=== PATIENT | female | born 1965 | race Two or more races ===

== ENCOUNTER 2018-01-13 00:21 | Inpatient (IN) | payer MEDICAID ==
[~2018-01-13] VITALS: Ht 167.6 cm; Wt 78.0 kg
[~2018-01-13 00:21] MED LIST: ACETAMINOPHEN-COD; ATO40T; ENAL20TA70; FENO160T8 PO; GLYB2.5T71; HYDR25TA4; NIAC500T58
[2018-01-13] MEDS ORDERED: cloNIDine HCL 0.1 MG TAB ONE (00:33)
[2018-01-13 01:35] LABS: Basophils # (auto) 0.1 uL; Basophils % (auto) 1.4 % (0.0-2.0); Eosinophils # (auto) 0 uL; Eosinophils % (auto) 0.6 % (0.0-7.0); Hematocrit 36.7 % (36.0-46.0); Hemoglobin 12.5 g/dL (12.2-16.2); Lymphocytes # (auto) 1.3 uL; Lymphocytes % (auto) 21.9 % (10.0-50.0); Mean Corpuscular Hemoglobin 30.3 pg (28.0-32.0); Mean Corpuscular Hgb Conc. 34.1 g/dL (32.0-36.0); Mean Corpuscular Volume 88.9 fL (80.0-100.0); Monocytes # (auto) 0.2 uL; Monocytes % (auto) 3.1 % (0.0-12.0); Neutrophils # (auto) 4.4 uL; Platelet Count (auto) 436 10^3/uL (140-450); Red Blood Cells 4.13 10^6/uL (4.0-5.20); Red Cell Distribution Width 13.5 % (11.8-14.3)
[2018-01-13 01:52] LABS: Albumin 2.3 g/dL (3.4-5.0); Magnesium 2.1 mg/dL (1.6-2.6); Potassium 4.6 mmol/L (3.5-5.1)
[2018-01-13 01:54] LABS: Total Protein 6.4 g/dL (6.4-8.2)
[2018-01-13 02:01] LABS: Bilirubin, Total 0.2 mg/dL (0.2-1.0)
[2018-01-13] MEDS ORDERED: InsuLIN REG 1unit/0.01ml Soln (100units/ml) IV ONE (04:15)
[2018-01-13] MEDS ORDERED: SODIUM POLYSTYRENE SULF 15GM/60ML SUSP PO ONE (04:15)
[2018-01-13] MEDS ORDERED: SODIUM CHLORIDE 0.9% 1,000 ML IV ONE ×2 (04:15→14:45)
[2018-01-13] MEDS ORDERED: ASPirin 81 mg TAB PO ONE (06:00)
[2018-01-13] MEDS ORDERED: ENOXAPARIN SOD 80 MG/0.8ML SYRINGE SC ONE (06:00)
[2018-01-13 06:05] LABS: Urine Bacteria FEW /hpf (None Seen); Urine Blood TRACE /uL (Negative); Urine Mucus FEW (None Seen); Urine Specific Gravity 1.016 (1.001-1.035); Urine WBC 2 /hpf (0 - 5)
[2018-01-13] MEDS ORDERED: SODIUM CHLORIDE 0.9% 1,000 ML IV SCH (06:48)
[2018-01-13] MEDS ORDERED: DEXTROSE (50%) 50ML SYRG IV PRN (07:00)
[2018-01-13] MEDS ORDERED: ONDANSETRON HCL 4 MG/2 ML VIAL IV PRN (07:00)
[2018-01-13] MEDS ORDERED: TEMAZEPAM 15 MG CAP PO PRN (07:00)
[2018-01-13] MEDS ORDERED: METOPROLOL TARTRATE 25 MG TAB PO ONE (07:30)
[2018-01-13] MEDS: NITROGLYCERIN 0.4 MG SL TAB SL PRN ×2 (09:48→17:12)
[2018-01-13] MEDS ORDERED: HCTZ 25 MG TAB PO SCH (10:00)
[2018-01-13] MEDS ORDERED: ENALAPRIL MALEATE 10 MG TAB PO SCH (10:00)
[2018-01-13] MEDS: PANTOPRAZOLE 40 MG TAB PO SCH (10:29)
[2018-01-13 12:00] VITALS: BP 159/104
[2018-01-13] MEDS: ACCU-CHEK COMFORT CURVE STRIP VI SCH ×3 (12:20→23:51)
[2018-01-13] MEDS: InsuLIN REG 1unit/0.01ml Soln (100units/ml) SC SCH ×3 (13:45→23:52)
[2018-01-13 17:19] VITALS: BP 152/96
[2018-01-13] MEDS: SODIUM CHLORIDE 0.9% 1,000 ML IV SCH (17:47)
[2018-01-13] MEDS: ISOSORBIDE DINITRATE 10 MG TAB PO SCH (18:00)
[2018-01-13] MEDS: CARVEDILOL 3.125 MG TAB PO SCH (21:44)
[2018-01-13] MEDS: ATORVASTATIN 20 MG TAB PO SCH (21:44)
[2018-01-13 22:00] VITALS: BP 155/94
[2018-01-13] MEDS ORDERED: ENOXAPARIN SOD 80 MG/0.8ML SYRINGE SC SCH ×2 (22:00)
[2018-01-14 00:30] LABS: Urine Blood Negative /uL (Negative); Urine Specific Gravity 1.011 (1.001-1.035)
[2018-01-14 00:31] LABS: Urine Bacteria FEW /hpf (None Seen); Urine Mucus FEW (None Seen); Urine WBC 3 /hpf (0 - 5)
[2018-01-14 00:59] LABS: Protein, Urine 388.1 mg/dL (0.0-11.9)
[2018-01-14] MEDS: SODIUM CHLORIDE 0.9% 1,000 ML IV SCH ×2 (01:30→13:33)
[2018-01-14 05:00] VITALS: BP 158/103
[2018-01-14] MEDS: ISOSORBIDE DINITRATE 10 MG TAB PO SCH ×3 (05:41→18:00)
[2018-01-14] MEDS: ACCU-CHEK COMFORT CURVE STRIP VI SCH ×4 (05:54→23:56)
[2018-01-14] MEDS: InsuLIN REG 1unit/0.01ml Soln (100units/ml) SC SCH ×4 (05:55→23:57)
[2018-01-14 08:05] LABS: Albumin 2.2 g/dL (3.4-5.0); BUN/Creatinine Ratio 12.7; Bilirubin, Total 0.2 mg/dL (0.2-1.0); Calcium 8.3 mg/dL (8.5-10.1); Phosphorus 3.3 mg/dL (2.5-4.90); Potassium 3.4 mmol/L (3.5-5.1); Total Protein 6.2 g/dL (6.4-8.2); Uric Acid 5.5 mg/dL (2.6-6.0)
[2018-01-14 08:07] LABS: INR 0.98 (0.9-1.15); Partial Thromboplastin Time 32.5 sec (22.64-33.71); Prothrombin Time 10.7 sec (9.37-12.3)
[2018-01-14 08:08] LABS: Basophils # (auto) 0.1 uL; Basophils % (auto) 1.4 % (0.0-2.0); Eosinophils # (auto) 0.1 uL; Eosinophils % (auto) 1.9 % (0.0-7.0); Hematocrit 33.8 % (36.0-46.0); Hemoglobin 11.6 g/dL (12.2-16.2); Lymphocytes # (auto) 2.7 uL; Lymphocytes % (auto) 39.2 % (10.0-50.0); Mean Corpuscular Hemoglobin 30.5 pg (28.0-32.0); Mean Corpuscular Hgb Conc. 34.2 g/dL (32.0-36.0); Mean Corpuscular Volume 89.1 fL (80.0-100.0); Monocytes # (auto) 0.3 uL; Monocytes % (auto) 4.7 % (0.0-12.0); Neutrophils # (auto) 3.7 uL; Neutrophils % (auto) 52.8 % (37.0-80.0); Nucleated Red Blood Cells % 0.2 %; Platelet Count (auto) 432 10^3/uL (140-450); Red Blood Cells 3.79 10^6/uL (4.0-5.20); Red Cell Distribution Width 13.5 % (11.8-14.3)
[2018-01-14 09:00] VITALS: BP 154/98
[2018-01-14] MEDS ORDERED: ASPirin-EC 325mg tab PO ONE (09:00)
[2018-01-14] MEDS: PANTOPRAZOLE 40 MG TAB PO SCH (10:00)
[2018-01-14] MEDS: CARVEDILOL 3.125 MG TAB PO SCH ×2 (10:00→22:21)
[2018-01-14] MEDS: ASPirin 81 mg TAB PO SCH (10:00)
[2018-01-14] MEDS ORDERED: IODIXANOL 320MG/ML 100ML BTL IV ONE (10:48)
[2018-01-14] MEDS ORDERED: LIDOCAINE HCL 2 %PF INJ 10ML AMP IJ ONE ×2 (10:49→11:14)
[2018-01-14] MEDS ORDERED: fentaNYL CITRATE 100 MCG/2 ML VL ONE (11:04)
[2018-01-14] MEDS ORDERED: MIDAZOLAM HCL 1MG/1ML-2 ML VIAL ONE (11:04)
[2018-01-14] MEDS ORDERED: ANGIOMAX 250 MG VIAL IV ONE (11:05)
[2018-01-14] MEDS ORDERED: SODIUM CHL 0.9% 0 ML ONE (11:05)
[2018-01-14] MEDS ORDERED: hydrALAZINE HCL 20 MG/ML VL ONE (11:17)
[2018-01-14] MEDS ORDERED: ACETAMINOPHEN 325 MG TAB PO ONE (12:19)
[2018-01-14] MEDS ORDERED: ACETAMINOPHEN 325 MG TAB PO PRN (12:30)
[2018-01-14 13:00] VITALS: BP 151/94
[2018-01-14 17:00] VITALS: BP 145/86
[2018-01-14] MEDS: HYDROcodone-ACET 10/325MG TAB PO PRN (17:33)
[2018-01-14 22:00] VITALS: BP 145/78
[2018-01-14] MEDS: ATORVASTATIN 20 MG TAB PO SCH (22:21)
[2018-01-15 05:00] VITALS: BP 163/95
[2018-01-15 05:48] LABS: Basophils # (auto) 0.1 uL; Basophils % (auto) 1.3 % (0.0-2.0); Eosinophils # (auto) 0.1 uL; Eosinophils % (auto) 1.6 % (0.0-7.0); Hematocrit 33.7 % (36.0-46.0); Hemoglobin 11.5 g/dL (12.2-16.2); Lymphocytes # (auto) 2.4 uL; Lymphocytes % (auto) 34.4 % (10.0-50.0); Mean Corpuscular Hemoglobin 30.5 pg (28.0-32.0); Mean Corpuscular Hgb Conc. 34.1 g/dL (32.0-36.0); Mean Corpuscular Volume 89.5 fL (80.0-100.0); Monocytes # (auto) 0.4 uL; Neutrophils # (auto) 3.9 uL; Neutrophils % (auto) 56.7 % (37.0-80.0); Nucleated Red Blood Cells % 0.1 %; Platelet Count (auto) 390 10^3/uL (140-450); Red Blood Cells 3.77 10^6/uL (4.0-5.20); Red Cell Distribution Width 13.6 % (11.8-14.3); White Blood Cell 6.9 10^3/uL (4.4-10.8)
[2018-01-15] MEDS: ISOSORBIDE DINITRATE 10 MG TAB PO SCH ×3 (05:54→18:17)
[2018-01-15] MEDS: InsuLIN REG 1unit/0.01ml Soln (100units/ml) SC SCH ×4 (05:58→23:47)
[2018-01-15] MEDS: ACCU-CHEK COMFORT CURVE STRIP VI SCH ×4 (05:58→23:46)
[2018-01-15 06:19] LABS: BUN/Creatinine Ratio 12.6; Calcium 8.6 mg/dL (8.5-10.1); Potassium 3.4 mmol/L (3.5-5.1)
[2018-01-15 08:00] VITALS: BP 163/95
[2018-01-15 09:00] VITALS: BP 154/89
[2018-01-15] MEDS: PANTOPRAZOLE 40 MG TAB PO SCH (10:00)
[2018-01-15] MEDS: ASPirin 81 mg TAB PO SCH (10:00)
[2018-01-15] MEDS: CARVEDILOL 3.125 MG TAB PO SCH ×2 (10:00→21:30)
[2018-01-15 13:37] VITALS: BP 169/104
[2018-01-15 16:45] VITALS: BP 145/85
[2018-01-15] MEDS: ATORVASTATIN 20 MG TAB PO SCH (21:30)
[2018-01-15 22:00] VITALS: BP 133/96
[2018-01-16] MEDS: cloNIDine HCL 0.1 MG TAB PO PRN (05:38)
[2018-01-16] MEDS: ISOSORBIDE DINITRATE 10 MG TAB PO SCH ×3 (05:39→18:58)
[2018-01-16] MEDS: ACCU-CHEK COMFORT CURVE STRIP VI SCH ×4 (05:47→23:47)
[2018-01-16] MEDS: InsuLIN REG 1unit/0.01ml Soln (100units/ml) SC SCH ×4 (05:47→23:47)
[2018-01-16 05:49] VITALS: BP 167/99
[2018-01-16] MEDS ORDERED: fentaNYL CITRATE 100 MCG/2 ML VL IV ONE (07:45)
[2018-01-16] MEDS ORDERED: NALOXONE HCL 0.4 MG/ML VIAL IV ONE (07:45)
[2018-01-16] MEDS ORDERED: FLUMAZENIL 0.1 MG/ML INJ 10ML MDV IV ONE (07:45)
[2018-01-16] MEDS ORDERED: LIDOCAINE VISCOUS 2% 15ML UD PO ONE (07:45)
[2018-01-16] MEDS ORDERED: MIDAZOLAM HCL 1MG/1ML-2 ML VIAL IV ONE (07:45)
[2018-01-16 08:00] VITALS: BP 142/79
[2018-01-16 09:07] VITALS: BP 134/80
[2018-01-16] MEDS: PANTOPRAZOLE 40 MG TAB PO SCH (10:59)
[2018-01-16] MEDS: HYDROcodone-ACET 10/325MG TAB PO PRN (11:00)
[2018-01-16] MEDS: ASPirin 81 mg TAB PO SCH (11:01)
[2018-01-16] MEDS: CARVEDILOL 3.125 MG TAB PO SCH ×2 (11:02→21:40)
[2018-01-16 12:42] VITALS: BP 141/76
[2018-01-16 17:15] VITALS: BP 142/91
[2018-01-16] MEDS: ATORVASTATIN 20 MG TAB PO SCH (21:39)
[2018-01-16 22:34] VITALS: BP 145/71
[2018-01-17 05:24] VITALS: BP 156/89
[2018-01-17] MEDS: ISOSORBIDE DINITRATE 10 MG TAB PO SCH ×3 (05:46→17:57)
[2018-01-17] MEDS: ACCU-CHEK COMFORT CURVE STRIP VI SCH ×4 (05:47→23:50)
[2018-01-17] MEDS: InsuLIN REG 1unit/0.01ml Soln (100units/ml) SC SCH ×4 (05:50→23:50)
[2018-01-17 09:00] VITALS: BP 139/89
[2018-01-17] MEDS: PANTOPRAZOLE 40 MG TAB PO SCH (10:43)
[2018-01-17] MEDS: ASPirin 81 mg TAB PO SCH (10:45)
[2018-01-17] MEDS: CARVEDILOL 3.125 MG TAB PO SCH ×2 (10:45→21:18)
[2018-01-17 13:00] VITALS: BP 148/88
[2018-01-17 17:00] VITALS: BP 158/97
[2018-01-17] MEDS: ATORVASTATIN 20 MG TAB PO SCH (21:18)
[2018-01-17] MEDS: HYDROcodone-ACET 10/325MG TAB PO PRN (21:24)
[2018-01-18] VITALS (18 sets, daily range): BP systolic 122–169; BP diastolic 64–106
[2018-01-18] MEDS: cloNIDine HCL 0.1 MG TAB PO PRN ×2 (05:02→23:48)
[2018-01-18] MEDS: ISOSORBIDE DINITRATE 10 MG TAB PO SCH ×3 (05:36→19:56)
[2018-01-18] MEDS: ACCU-CHEK COMFORT CURVE STRIP VI SCH ×4 (05:37→23:37)
[2018-01-18] MEDS: InsuLIN REG 1unit/0.01ml Soln (100units/ml) SC SCH ×4 (05:37→23:37)
[2018-01-18 08:16] LABS: INR 0.95 (0.9-1.15); Partial Thromboplastin Time 29.5 sec (22.64-33.71); Prothrombin Time 10.3 sec (9.37-12.3)
[2018-01-18 08:22] LABS: Albumin 2.2 g/dL (3.4-5.0); BUN/Creatinine Ratio 20.3; Bilirubin, Total 0.2 mg/dL (0.2-1.0); Calcium 8.2 mg/dL (8.5-10.1); Potassium 3.6 mmol/L (3.5-5.1); Total Protein 5.8 g/dL (6.4-8.2)
[2018-01-18] MEDS: HYDROcodone-ACET 10/325MG TAB PO PRN (09:32)
[2018-01-18] MEDS ORDERED: ASPirin-EC 325mg tab PO SCH (10:00)
[2018-01-18] MEDS: CARVEDILOL 3.125 MG TAB PO SCH ×2 (12:14→21:58)
[2018-01-18] MEDS: PANTOPRAZOLE 40 MG TAB PO SCH (12:14)
[2018-01-18 15:07] LABS: Basophils # (auto) 0.1 uL; Basophils % (auto) 1.7 % (0.0-2.0); Eosinophils # (auto) 0.1 uL; Eosinophils % (auto) 2.2 % (0.0-7.0); Hematocrit 27.8 % (36.0-46.0); Hemoglobin 9.5 g/dL (12.2-16.2); Lymphocytes # (auto) 1.9 uL; Lymphocytes % (auto) 37.2 % (10.0-50.0); Mean Corpuscular Hemoglobin 30.8 pg (28.0-32.0); Mean Corpuscular Hgb Conc. 34.3 g/dL (32.0-36.0); Mean Corpuscular Volume 89.9 fL (80.0-100.0); Monocytes # (auto) 0.3 uL; Monocytes % (auto) 5.9 % (0.0-12.0); Neutrophils # (auto) 2.8 uL; Nucleated Red Blood Cells % 0.1 %; Platelet Count (auto) 325 10^3/uL (140-450); Red Blood Cells 3.09 10^6/uL (4.0-5.20); Red Cell Distribution Width 13.5 % (11.8-14.3); White Blood Cell 5.2 10^3/uL (4.4-10.8)
[2018-01-18] MEDS ORDERED: CHLORHEXIDINE 4% TOPICAL soln 237ML TOP ONE (20:56)
[2018-01-18] MEDS ORDERED: CHLORHEXIDINE 0.12% ORAL rinse 473ML MT ONE (20:56)
[2018-01-18 21:05] LABS: Urine Bacteria FEW /hpf (None Seen); Urine Blood TRACE /uL (Negative); Urine Mucus FEW (None Seen); Urine Specific Gravity 1.017 (1.001-1.035); Urine WBC 67 /hpf (0 - 5)
[2018-01-18] MEDS: ATORVASTATIN 20 MG TAB PO SCH (21:59)
[2018-01-18] MEDS ORDERED: ASCORBIC ACID 500 MG TAB PO ONE (22:00)
[2018-01-19] VITALS (38 sets, daily range): BP systolic 21–165; BP diastolic 12–98
[2018-01-19] MEDS ORDERED: CHLORHEXIDINE 4% TOPICAL soln 118ML TOP ONE (02:00)
[2018-01-19] MEDS ORDERED: CHLORHEXIDINE 4% TOPICAL soln 237ML TOP ONE (02:41)
[2018-01-19] MEDS: InsuLIN REG 1unit/0.01ml Soln (100units/ml) SC SCH (06:00)
[2018-01-19] MEDS: ISOSORBIDE DINITRATE 10 MG TAB PO SCH (06:00)
[2018-01-19] MEDS ORDERED: CHLORHEXIDINE 0.12% ORAL rinse 473ML MT ONE (06:00)
[2018-01-19] MEDS ORDERED: ACCU-CHEK COMFORT CURVE STRIP VI ONE (06:00)
[2018-01-19] MEDS: ACCU-CHEK COMFORT CURVE STRIP VI SCH ×7 (06:12→23:00)
[2018-01-19] MEDS ORDERED: NEOMYCIN-BACITRACIN-POLYM 15GM TOP OINT TOP ONE (06:31)
[2018-01-19] MEDS ORDERED: HEPARIN 1,000 UNITS/ml 1ML VIAL ONE (06:31)
[2018-01-19] MEDS ORDERED: BACITRACIN INJ 50000 UNIT VIAL ONE ×2 (06:31→16:21)
[2018-01-19] MEDS ORDERED: PAPAVERINE HCL 60 MG/2 ML 2ML VIAL ONE (06:31)
[2018-01-19] MEDS ORDERED: ALBUMIN 25% 400 ML IV ONE (06:44)
[2018-01-19] MEDS ORDERED: CIPROFLOXACIN 400MG/200ML 200 ML IV ONE (07:00)
[2018-01-19] MEDS ORDERED: MIDAZOLAM HCL 1MG/1ML-2 ML VIAL ONE (07:09)
[2018-01-19] MEDS ORDERED: VANCOMYCIN 1GM/250ML 250 ML IV ONE (07:30)
[2018-01-19] MEDS ORDERED: fentaNYL CITRATE 100 MCG/2 ML VL ONE ×2 (08:24→08:25)
[2018-01-19] MEDS ORDERED: PHENYLEPHRINE INJ 20 MG in SODIUM CHL 0.9% 250 ML IV ONE (08:30)
[2018-01-19] MEDS ORDERED: HEPARIN 30000 UNITS in SODIUM CHLORIDE 0.9% 1000 ML IV ONE (08:30)
[2018-01-19] MEDS ORDERED: EPINEPHrine HCL 4 MG in D5W 5% 250 ML IV ONE (08:30)
[2018-01-19] MEDS ORDERED: VASOPRESSIN 50 UNITS in SODIUM CHL 0.9% 247.5 ML IV ONE (08:30)
[2018-01-19] MEDS ORDERED: NOREPINEPHRINE 8 MG/250ML KIT 250 ML IV ONE (08:30)
[2018-01-19] MEDS ORDERED: InsuLIN R (HUMAN) 100 UNITS in SODIUM CHL 0.9% 99 ML IV ONE (08:30)
[2018-01-19] MEDS ORDERED: AMINOCAPROIC ACID 5 GM in SODIUM CHL 0.9% 250 ML IV ONE (08:30)
[2018-01-19] MEDS ORDERED: AMINOCAPROIC ACID 10 GM in SODIUM CHL 0.9% 100 ML IV ONE (08:30)
[2018-01-19] MEDS ORDERED: PLASMA-LYTE A pH7.4 8,000 ML INJ ONE (08:38)
[2018-01-19] MEDS ORDERED: ALBUMIN 25% 100 ML IV ONE ×2 (12:25→12:29)
[2018-01-19 16:36] LABS: Basophils # (auto) 0 uL; Lymphocytes # (auto) 0.7 uL; Monocytes # (auto) 0.2 uL
[2018-01-19 16:38] LABS: Monocytes % (auto) 1.6 % (0.0-12.0)
[2018-01-19 16:41] LABS: Albumin 2.3 g/dL (3.4-5.0); BUN/Creatinine Ratio 16.5; Calcium 6.1 mg/dL (8.5-10.1)
[2018-01-19 16:44] LABS: Basophils % (auto) 0.4 % (0.0-2.0); Bilirubin, Total 1.2 mg/dL (0.2-1.0); Hemoglobin 8.3 g/dL (12.2-16.2); Total Protein 3.9 g/dL (6.4-8.2)
[2018-01-19 16:46] LABS: Eosinophils # (auto) 0.1 uL; Eosinophils % (auto) 0.5 % (0.0-7.0); Hematocrit 24.3 % (36.0-46.0); Mean Corpuscular Hemoglobin 30.5 pg (28.0-32.0); Mean Corpuscular Volume 89.5 fL (80.0-100.0); Neutrophils # (auto) 11.1 uL; Neutrophils % (auto) 91.5 % (37.0-80.0); Platelet Count (auto) 125 10^3/uL (140-450); Red Blood Cells 2.71 10^6/uL (4.0-5.20); Red Cell Distribution Width 13.6 % (11.8-14.3); White Blood Cell 12.1 10^3/uL (4.4-10.8)
[2018-01-19 16:50] LABS: INR 1.66 (0.9-1.15); Partial Thromboplastin Time 38.8 sec (22.64-33.71); Prothrombin Time 18.2 sec (9.37-12.3)
[2018-01-19] MEDS: SODIUM CHLORIDE 0.9% 500 ML IV SCH (17:11)
[2018-01-19] MEDS: PHENYLEPHRINE IV 250 ML IV SCH (17:11)
[2018-01-19] MEDS: NICARDIPINE 25MG/250ML BAG KIT 250 ML IV SCH ×2 (17:11→22:11)
[2018-01-19] MEDS ORDERED: NITROGLYCERIN 50MG/250ML 250 ML IV SCH (17:11)
[2018-01-19] MEDS ORDERED: INSULIN DRIP 100 UNIT/100ML 100 ML IV SCH (17:11)
[2018-01-19] MEDS ORDERED: FUROSEMIDE 20 MG/2 ML VIAL IV PRN (17:15)
[2018-01-19] MEDS ORDERED: METOCLOPRAMIDE HCL 5MG/ml INJ 2ml VIAL IV PRN (17:15)
[2018-01-19] MEDS ORDERED: DEXTROSE (50%) 50ML SYRG IV PRN (17:15)
[2018-01-19] MEDS ORDERED: ZOLPIDEM TARTRATE 5 MG TAB PO PRN (17:15)
[2018-01-19] MEDS ORDERED: AMIODARONE HCL 150 MG in D5W 5% 100 ML IV ONE (17:15)
[2018-01-19] MEDS ORDERED: fentaNYL CITRATE 100 MCG/2 ML VL IV PRN ×2 (17:15→19:45)
[2018-01-19] MEDS ORDERED: ONDANSETRON HCL 4 MG/2 ML VIAL IV PRN (17:15)
[2018-01-19] MEDS ORDERED: MAGNESIUM SULFATE 1GM/100ML 100 ML IV PRN (17:15)
[2018-01-19] MEDS ORDERED: ALBUMIN 5% 250 ML IV PRN (17:15)
[2018-01-19] MEDS ORDERED: PROPRANOLOL HCL 1 MG/ML VIAL IV PRN (17:15)
[2018-01-19] MEDS ORDERED: AMIODARONE HCL 900 MG in DEXTROSE 500 ML IV SCH (17:21)
[2018-01-19] MEDS: SODIUM CHLORIDE 0.9% 1,000 ML IV SCH (17:30)
[2018-01-19] MEDS: MILRINONE 20MG/100ML 100 ML IV SCH (17:30)
[2018-01-19] MEDS: SODIUM BICARBONATE 8.4% INJ 50ML SYRINGE IV PRN ×2 (18:20→19:47)
[2018-01-19 18:30] LABS: Hematocrit 33.7 % (36.0-46.0); Hemoglobin 11.5 g/dL (12.2-16.2); Mean Corpuscular Hemoglobin 30.5 pg (28.0-32.0); Mean Corpuscular Hgb Conc. 34.3 g/dL (32.0-36.0); Mean Corpuscular Volume 89.1 fL (80.0-100.0); Platelet Count (auto) 160 10^3/uL (140-450); Red Blood Cells 3.78 10^6/uL (4.0-5.20); Red Cell Distribution Width 13.6 % (11.8-14.3); White Blood Cell 13.4 10^3/uL (4.4-10.8)
[2018-01-19 18:35] LABS: INR 1.13 (0.9-1.15); Partial Thromboplastin Time 33.6 sec (22.64-33.71); Prothrombin Time 12.3 sec (9.37-12.3)
[2018-01-19 18:37] LABS: Basophils % (manual) 0 (0.0-2.0); Blast Cells 0; Metamyelocytes % 0; Myelocytes % 0; Promyelocytes % 0; Reactive Lymphocytes 0
[2018-01-19 18:43] LABS: Albumin 3.2 g/dL (3.4-5.0); BUN/Creatinine Ratio 14.6; Bilirubin, Total 1.4 mg/dL (0.2-1.0); Calcium 7.6 mg/dL (8.5-10.1)
[2018-01-19 18:46] LABS: Potassium 2.9 mmol/L (3.5-5.1)
[2018-01-19 18:47] LABS: Magnesium 4.6 mg/dL (1.6-2.6)
[2018-01-19] MEDS: POTASSIUM CHL 20MEQ/100ML 100 ML IV PRN ×5 (19:00→23:15)
[2018-01-19] MEDS: PROPOFOL 100 ML IV SCH (19:04)
[2018-01-19] MEDS: CALCIUM GLUC 4.65meq/50ml D5AE 50 ML IV PRN ×3 (19:05→23:56)
[2018-01-19] MEDS ORDERED: CALCIUM CHLOR(10%) 100MG/ML 10ML SYRINGE IV ONE (19:07)
[2018-01-19] MEDS ORDERED: DEXAMETHASONE SODIUM PHOSP 120 MG/30ml VIAL IV ONE (19:07)
[2018-01-19] MEDS ORDERED: PHENYLEPHRINE HCL 10 MG/ML VL IV ONE (19:07)
[2018-01-19] MEDS ORDERED: LIDOCAINE HCL 100 MG/5ML (2%) SYRG INJ IV ONE (19:07)
[2018-01-19] MEDS ORDERED: ADENOSINE 6 MG/2 ML INJ IV ONE (19:07)
[2018-01-19] MEDS ORDERED: AMINOCAPROIC ACID 5 GM/20 ML VL IV ONE (19:07)
[2018-01-19] MEDS ORDERED: POTASSIUM CHL 2MEQ/ML 20ML IV ONE (19:07)
[2018-01-19] MEDS ORDERED: MANNITOL 20% SOLN 100 gm/500ml BAG IV ONE (19:07)
[2018-01-19] MEDS ORDERED: SODIUM BICARBONATE 8.4 % INJ 50ML VIAL IV ONE (19:07)
[2018-01-19] MEDS ORDERED: MAGNESIUM SULF 50% 40 MEQ/10 ML VL IV ONE (19:07)
[2018-01-19 19:18] LABS: Phosphorus 0.5 mg/dL (2.5-4.90)
[2018-01-19 19:30] LABS: Band Neutrophils % (manual) 1; Eosinophils % (manual) 1 (0-7); Lymphocytes % (manual) 2 (10.0-50.0); Monocytes % (manual) 2 (0-12)
[2018-01-19] MEDS ORDERED: POTASSIUM PHOSPHATE 22 MEQ in SODIUM CHL 0.9% 100 ML IV ONE (19:30)
[2018-01-19] MEDS: VANCOMYCIN 1GM/250ML 250 ML IV SCH (20:26)
[2018-01-19] MEDS: fentaNYL CITRATE 100 MCG/2 ML VL IV PRN (21:10)
[2018-01-19] MEDS: CIPROFLOXACIN 400MG/200ML 200 ML IV SCH (21:38)
[2018-01-19] MEDS ORDERED: SODIUM PHOSP 20MEQ(15MMOL) IN NS 100 ML IV ONE (21:45)
[2018-01-19 21:56] LABS: Basophils # (auto) 0 uL; Basophils % (auto) 0.1 % (0.0-2.0); Eosinophils # (auto) 0 uL; Hematocrit 32.5 % (36.0-46.0); Hemoglobin 11.2 g/dL (12.2-16.2); Lymphocytes # (auto) 0.3 uL; Mean Corpuscular Hemoglobin 30.6 pg (28.0-32.0); Mean Corpuscular Hgb Conc. 34.5 g/dL (32.0-36.0); Mean Corpuscular Volume 88.8 fL (80.0-100.0); Monocytes # (auto) 0.5 uL; Monocytes % (auto) 3.2 % (0.0-12.0); Neutrophils # (auto) 15.9 uL; Neutrophils % (auto) 94.7 % (37.0-80.0); Platelet Count (auto) 194 10^3/uL (140-450); Red Blood Cells 3.66 10^6/uL (4.0-5.20); Red Cell Distribution Width 13.9 % (11.8-14.3); White Blood Cell 16.8 10^3/uL (4.4-10.8)
[2018-01-19] MEDS: CHLORHEXIDINE 0.12% ORAL rinse 473ML MT SCH (22:11)
[2018-01-19 22:20] LABS: BUN/Creatinine Ratio 14.1; Calcium 6.4 mg/dL (8.5-10.1); Magnesium 3.6 mg/dL (1.6-2.6); Phosphorus 1.1 mg/dL (2.5-4.90)
[2018-01-19 22:24] LABS: Potassium 2.8 mmol/L (3.5-5.1)
[2018-01-19] MEDS: SOD CHL 0.45% 1,000 ML IV SCH (22:45)
[2018-01-19] MEDS: ALBUMIN 5% 250 ML IV PRN (23:05)
[2018-01-19] MEDS: AMIODARONE HCL 900 MG in DEXTROSE 500 ML IV SCH (23:21)
[2018-01-20] VITALS (102 sets, daily range): BP systolic 19–158; BP diastolic 6–84
[2018-01-20] MEDS: ALBUMIN 5% 250 ML IV PRN (00:39)
[2018-01-20] MEDS: ACCU-CHEK COMFORT CURVE STRIP VI SCH ×19 (01:00→17:00)
[2018-01-20 01:39] LABS: Basophils # (auto) 0 uL; Basophils % (auto) 0.1 % (0.0-2.0); Eosinophils # (auto) 0 uL; Hematocrit 29.1 % (36.0-46.0); Lymphocytes # (auto) 0.4 uL; Lymphocytes % (auto) 2.5 % (10.0-50.0); Mean Corpuscular Hemoglobin 30.3 pg (28.0-32.0); Mean Corpuscular Hgb Conc. 34.3 g/dL (32.0-36.0); Mean Corpuscular Volume 88.2 fL (80.0-100.0); Monocytes # (auto) 0.9 uL; Monocytes % (auto) 5.4 % (0.0-12.0); Neutrophils # (auto) 15.6 uL; Platelet Count (auto) 176 10^3/uL (140-450); White Blood Cell 16.9 10^3/uL (4.4-10.8)
[2018-01-20 01:52] LABS: Albumin 3.2 g/dL (3.4-5.0); BUN/Creatinine Ratio 12.6; Magnesium 3.9 mg/dL (1.6-2.6)
[2018-01-20 02:02] LABS: Bilirubin, Total 0.6 mg/dL (0.2-1.0); Total Protein 5.1 g/dL (6.4-8.2)
[2018-01-20] MEDS: NICARDIPINE 25MG/250ML BAG KIT 250 ML IV SCH ×5 (02:03→22:03)
[2018-01-20 02:05] LABS: Phosphorus 0.8 mg/dL (2.5-4.90)
[2018-01-20] MEDS ORDERED: POTASSIUM PHOSPHATE 22 MEQ in SODIUM CHL 0.9% 100 ML IV ONE (02:15)
[2018-01-20] MEDS: fentaNYL CITRATE 100 MCG/2 ML VL IV PRN (02:58)
[2018-01-20] MEDS: SODIUM CHLORIDE 0.9% 1,000 ML IV SCH ×3 (04:18→17:45)
[2018-01-20] MEDS: MILRINONE 20MG/100ML 100 ML IV SCH ×3 (05:28→23:28)
[2018-01-20] MEDS: ACETYLCYSTEINE 10 %(100MG/ML) SOL 4ML NEB SCH ×3 (06:00→22:00)
[2018-01-20 06:08] LABS: Basophils # (auto) 0 uL; Basophils % (auto) 0.3 % (0.0-2.0); Eosinophils # (auto) 0 uL; Hematocrit 26.1 % (36.0-46.0); Hemoglobin 8.9 g/dL (12.2-16.2); Lymphocytes # (auto) 0.7 uL; Lymphocytes % (auto) 4.6 % (10.0-50.0); Mean Corpuscular Hemoglobin 30.3 pg (28.0-32.0); Mean Corpuscular Hgb Conc. 34.1 g/dL (32.0-36.0); Mean Corpuscular Volume 88.9 fL (80.0-100.0); Monocytes # (auto) 0.9 uL; Monocytes % (auto) 5.3 % (0.0-12.0); Neutrophils # (auto) 14.5 uL; Neutrophils % (auto) 89.8 % (37.0-80.0); Nucleated Red Blood Cells % 0.1 %; Platelet Count (auto) 180 10^3/uL (140-450); Red Blood Cells 2.94 10^6/uL (4.0-5.20); Red Cell Distribution Width 14.2 % (11.8-14.3); White Blood Cell 16.1 10^3/uL (4.4-10.8)
[2018-01-20 06:29] LABS: BUN/Creatinine Ratio 11.9; Magnesium 3.8 mg/dL (1.6-2.6); Phosphorus 2.9 mg/dL (2.5-4.90)
[2018-01-20] MEDS ORDERED: PHYTONADIONE (VIT K)10 MG/ML 1ML VIAL IM ONE (07:00)
[2018-01-20] MEDS ORDERED: phytonadione 10 MG in SODIUM CHL 0.9% 50 ML IV ONE (07:00)
[2018-01-20] MEDS ORDERED: PHYTONADIONE (VIT K)10 MG/ML 1ML VIAL IV ONE (07:00)
[2018-01-20] MEDS: VANCOMYCIN 1GM/250ML 250 ML IV SCH ×2 (08:00→20:08)
[2018-01-20 09:33] LABS: Hematocrit 25.6 % (36.0-46.0); Hemoglobin 8.8 g/dL (12.2-16.2)
[2018-01-20 09:48] LABS: INR 1.02 (0.9-1.15); Partial Thromboplastin Time 29.5 sec (22.64-33.71); Prothrombin Time 11.1 sec (9.37-12.3)
[2018-01-20] MEDS: CHLORHEXIDINE 0.12% ORAL rinse 473ML MT SCH ×2 (09:51→22:02)
[2018-01-20] MEDS: SOD CHL 0.45% 1,000 ML IV SCH (09:52)
[2018-01-20] MEDS ORDERED: PANTOPRAZOLE 40 MG/10 ML VIAL IV SCH (10:00)
[2018-01-20] MEDS: CIPROFLOXACIN 400MG/200ML 200 ML IV SCH (10:46)
[2018-01-20] MEDS: DEXMEDETOMIDINE HCL 400 MCG in D5W 5% 96 ML IV SCH ×2 (11:30→17:11)
[2018-01-20] MEDS ORDERED: ALBUMIN 25% 100 ML IV ONE (14:15)
[2018-01-20 14:52] LABS: Basophils # (auto) 0.1 uL; Basophils % (auto) 0.7 % (0.0-2.0); Eosinophils # (auto) 0 uL; Hematocrit 24.9 % (36.0-46.0); Hemoglobin 8.5 g/dL (12.2-16.2); Lymphocytes # (auto) 0.9 uL; Lymphocytes % (auto) 6.2 % (10.0-50.0); Mean Corpuscular Hemoglobin 30.4 pg (28.0-32.0); Mean Corpuscular Hgb Conc. 34.1 g/dL (32.0-36.0); Mean Corpuscular Volume 88.9 fL (80.0-100.0); Monocytes # (auto) 0.9 uL; Monocytes % (auto) 6.2 % (0.0-12.0); Neutrophils # (auto) 12.5 uL; Neutrophils % (auto) 86.9 % (37.0-80.0); Nucleated Red Blood Cells % 0.1 %; Platelet Count (auto) 168 10^3/uL (140-450); Red Cell Distribution Width 14.3 % (11.8-14.3); White Blood Cell 14.4 10^3/uL (4.4-10.8)
[2018-01-20 15:16] LABS: BUN/Creatinine Ratio 11.7; Calcium 7.9 mg/dL (8.5-10.1); Magnesium 3.8 mg/dL (1.6-2.6); Phosphorus 4.5 mg/dL (2.5-4.90)
[2018-01-20] MEDS ORDERED: HYDROcodone-ACET 5/325MG TAB PO PRN (16:00)
[2018-01-20] MEDS ORDERED: SENNA 8.6 MG TAB PO PRN (16:00)
[2018-01-20] MEDS ORDERED: DEXTROSE (50%) 50ML SYRG IV PRN (16:00)
[2018-01-20] MEDS ORDERED: METOCLOPRAMIDE HCL 5MG/ml INJ 2ml VIAL IV PRN (16:00)
[2018-01-20] MEDS ORDERED: diphenhdrAMINE HCL 25 MG CAP PO PRN (16:00)
[2018-01-20] MEDS ORDERED: HYDROcodone-ACET 7.5/325MG TAB PO PRN (16:00)
[2018-01-20] MEDS: CALCIUM GLUC 4.65meq/50ml D5AE 50 ML IV PRN (16:19)
[2018-01-20] MEDS: AMIODARONE HCL 900 MG in DEXTROSE 500 ML IV SCH (16:40)
[2018-01-20] MEDS: PHENYLEPHRINE IV 250 ML IV SCH (17:11)
[2018-01-20] MEDS: PROPOFOL 100 ML IV SCH (17:11)
[2018-01-20] MEDS ORDERED: DESMOPRESSIN INJECTION 20 MCG in SODIUM CHL 0.9% 50 ML IV ONE (17:45)
[2018-01-20] MEDS: InsuLIN REG 1unit/0.01ml Soln (100units/ml) SC SCH ×3 (18:00→22:03)
[2018-01-20] MEDS: FUROSEMIDE 40 MG TAB PO SCH (18:00)
[2018-01-20] MEDS: Boost Glucose Control 8 Ounces PO SCH (18:00)
[2018-01-20] MEDS ORDERED: ACETAMINOPHEN IV 1000 MG/100ML (10MG/ML) IV PRN (18:15)
[2018-01-20] MEDS: SODIUM CHLORIDE 0.9% 500 ML IV SCH (18:24)
[2018-01-20] MEDS: ACETAMINOPHEN IV 1000 MG/100ML (10MG/ML) IV PRN (19:52)
[2018-01-20] MEDS: hydrALAZINE HCL 20 MG/ML VL IV PRN (19:53)
[2018-01-20 20:38] LABS: Albumin 3.2 g/dL (3.4-5.0); BUN/Creatinine Ratio 12.5; Basophils # (auto) 0 uL; Basophils % (auto) 0.3 % (0.0-2.0); Calcium 8.2 mg/dL (8.5-10.1); Eosinophils # (auto) 0 uL; Hematocrit 24.9 % (36.0-46.0); Hemoglobin 8.5 g/dL (12.2-16.2); Lymphocytes # (auto) 1.1 uL; Lymphocytes % (auto) 8.9 % (10.0-50.0); Magnesium 3.1 mg/dL (1.6-2.6); Mean Corpuscular Hgb Conc. 34.1 g/dL (32.0-36.0); Mean Corpuscular Volume 88.1 fL (80.0-100.0); Monocytes # (auto) 0.7 uL; Monocytes % (auto) 5.8 % (0.0-12.0); Neutrophils # (auto) 10.6 uL; Platelet Count (auto) 133 10^3/uL (140-450); Potassium 3.8 mmol/L (3.5-5.1); Red Blood Cells 2.83 10^6/uL (4.0-5.20); Red Cell Distribution Width 14.1 % (11.8-14.3); White Blood Cell 12.5 10^3/uL (4.4-10.8)
[2018-01-20] MEDS: POTASSIUM CHL 20MEQ/100ML 100 ML IV PRN (20:54)
[2018-01-20] MEDS: DOCUSATE SOD 100 MG CAP PO SCH (21:10)
[2018-01-20] MEDS: POTASSIUM CHL 20 Meq TABLET PO SCH (21:10)
[2018-01-20] MEDS: ASCORBIC ACID 500 MG TAB PO SCH (21:11)
[2018-01-20] MEDS: ATORVASTATIN 20 MG TAB PO SCH (21:11)
[2018-01-20] MEDS: METOPROLOL TARTRATE 25 MG TAB PO SCH (21:11)
[2018-01-20] MEDS ORDERED: KETOROLAC TROMETH 30 MG/ML 1ML VIAL IV PRN (21:15)
[2018-01-21] VITALS (96 sets, daily range): BP systolic 25–177; BP diastolic 10–119
[2018-01-21] MEDS: POTASSIUM CHL 20MEQ/100ML 100 ML IV PRN (00:38)
[2018-01-21 00:40] LABS: Albumin 3.1 g/dL (3.4-5.0); Calcium 8.1 mg/dL (8.5-10.1); Magnesium 3.1 mg/dL (1.6-2.6)
[2018-01-21] MEDS: ACCU-CHEK COMFORT CURVE STRIP VI SCH ×7 (02:00→21:51)
[2018-01-21] MEDS: ACETAMINOPHEN IV 1000 MG/100ML (10MG/ML) IV PRN ×3 (02:11→16:38)
[2018-01-21] MEDS: SODIUM CHLORIDE 0.9% 1,000 ML IV SCH ×4 (02:32→20:13)
[2018-01-21] MEDS: NICARDIPINE 25MG/250ML BAG KIT 250 ML IV SCH ×5 (04:11→23:56)
[2018-01-21 04:33] LABS: Basophils # (auto) 0 uL; Eosinophils # (auto) 0 uL; Hemoglobin 7.9 g/dL (12.2-16.2); Lymphocytes # (auto) 1.4 uL; Platelet Count (auto) 125 10^3/uL (140-450); White Blood Cell 13.9 10^3/uL (4.4-10.8)
[2018-01-21 04:35] LABS: Basophils % (auto) 0.2 % (0.0-2.0); Hematocrit 22.9 % (36.0-46.0); Lymphocytes % (auto) 9.9 % (10.0-50.0); Mean Corpuscular Hemoglobin 30.7 pg (28.0-32.0); Mean Corpuscular Hgb Conc. 34.7 g/dL (32.0-36.0); Mean Corpuscular Volume 88.4 fL (80.0-100.0); Monocytes # (auto) 0.8 uL; Monocytes % (auto) 5.9 % (0.0-12.0); Neutrophils # (auto) 11.7 uL; Red Blood Cells 2.59 10^6/uL (4.0-5.20); Red Cell Distribution Width 14.7 % (11.8-14.3)
[2018-01-21] MEDS: hydrALAZINE HCL 20 MG/ML VL IV PRN ×2 (04:42→22:11)
[2018-01-21 04:47] LABS: INR 1.02 (0.9-1.15); Partial Thromboplastin Time 33.4 sec (22.64-33.71); Prothrombin Time 11.1 sec (9.37-12.3)
[2018-01-21 04:52] LABS: BUN/Creatinine Ratio 11.8; Bilirubin, Total 0.7 mg/dL (0.2-1.0); Calcium 7.7 mg/dL (8.5-10.1); Magnesium 3.4 mg/dL (1.6-2.6); Potassium 4.2 mmol/L (3.5-5.1); Total Protein 5.1 g/dL (6.4-8.2)
[2018-01-21] MEDS: FUROSEMIDE 40 MG TAB PO SCH ×2 (05:43→17:41)
[2018-01-21] MEDS: InsuLIN REG 1unit/0.01ml Soln (100units/ml) SC SCH ×5 (05:43→21:51)
[2018-01-21] MEDS: ACETYLCYSTEINE 10 %(100MG/ML) SOL 4ML NEB SCH ×4 (06:00→21:59)
[2018-01-21] MEDS: IPRATROPIUM BROM 0.5 MG/2.5ML INH SOL NEB PRN ×3 (06:08→21:59)
[2018-01-21] MEDS: KETOROLAC TROMETH 30 MG/ML 1ML VIAL IV PRN ×2 (06:30→21:35)
[2018-01-21] MEDS: Boost Glucose Control 8 Ounces PO SCH ×3 (08:00→17:41)
[2018-01-21] MEDS: VANCOMYCIN 1GM/250ML 250 ML IV SCH (08:59)
[2018-01-21] MEDS: PANTOPRAZOLE 40 MG/10 ML VIAL IV SCH (10:00)
[2018-01-21] MEDS: NITROGLYCERIN 0.4MG/HR TOPICAL PATCH TD SCH (10:00)
[2018-01-21] MEDS: CHLORHEXIDINE 0.12% ORAL rinse 473ML MT SCH ×2 (10:00→21:42)
[2018-01-21] MEDS: POTASSIUM CHL 20 Meq TABLET PO SCH ×2 (10:35→21:52)
[2018-01-21] MEDS: DOCUSATE SOD 100 MG CAP PO SCH ×2 (10:35→21:52)
[2018-01-21] MEDS: ASPirin 81 mg TAB PO SCH (10:35)
[2018-01-21] MEDS: METOPROLOL TARTRATE 25 MG TAB PO SCH ×2 (10:35→21:52)
[2018-01-21] MEDS: ASCORBIC ACID 500 MG TAB PO SCH ×2 (10:36→21:52)
[2018-01-21 11:01] LABS: Basophils # (auto) 0.1 uL; Basophils % (auto) 0.5 % (0.0-2.0); Eosinophils # (auto) 0 uL; Hematocrit 17.7 % (36.0-46.0); Lymphocytes # (auto) 1.2 uL; Lymphocytes % (auto) 10.8 % (10.0-50.0); Mean Corpuscular Hgb Conc. 34.4 g/dL (32.0-36.0); Mean Corpuscular Volume 90.4 fL (80.0-100.0); Monocytes # (auto) 0.6 uL; Monocytes % (auto) 5.6 % (0.0-12.0); Neutrophils # (auto) 9.1 uL; Neutrophils % (auto) 83.1 % (37.0-80.0); Nucleated Red Blood Cells % 0.2 %; Platelet Count (auto) 102 10^3/uL (140-450); Red Blood Cells 1.96 10^6/uL (4.0-5.20); Red Cell Distribution Width 14.8 % (11.8-14.3); White Blood Cell 10.9 10^3/uL (4.4-10.8)
[2018-01-21 11:05] LABS: Hemoglobin 6.1 g/dL (12.2-16.2)
[2018-01-21 11:57] LABS: Hematocrit 21.8 % (36.0-46.0); Hemoglobin 7.4 g/dL (12.2-16.2)
[2018-01-21] MEDS: POTASSIUM CHL 20MEQ/100ML 100 ML IV SCH ×2 (12:00→12:36)
[2018-01-21] MEDS: MILRINONE 20MG/100ML 100 ML IV SCH (16:51)
[2018-01-21] MEDS: PHENYLEPHRINE IV 250 ML IV SCH (17:11)
[2018-01-21 18:49] LABS: Basophils # (auto) 0 uL; Basophils % (auto) 0.3 % (0.0-2.0); Eosinophils # (auto) 0 uL; Lymphocytes # (auto) 1.4 uL; Lymphocytes % (auto) 11.1 % (10.0-50.0); Mean Corpuscular Hgb Conc. 33.4 g/dL (32.0-36.0); Mean Corpuscular Volume 89.8 fL (80.0-100.0); Monocytes # (auto) 0.4 uL; Monocytes % (auto) 3.6 % (0.0-12.0); Neutrophils # (auto) 10.5 uL; Nucleated Red Blood Cells % 0.1 %; Platelet Count (auto) 126 10^3/uL (140-450); Red Cell Distribution Width 15.3 % (11.8-14.3); White Blood Cell 12.3 10^3/uL (4.4-10.8)
[2018-01-21 19:04] LABS: BUN/Creatinine Ratio 12.5; Calcium 7.5 mg/dL (8.5-10.1)
[2018-01-21] MEDS: AMIODARONE HCL 900 MG in DEXTROSE 500 ML IV SCH (20:13)
[2018-01-21] MEDS: ATORVASTATIN 20 MG TAB PO SCH (21:52)
[2018-01-22] VITALS (101 sets, daily range): BP systolic 109–182; BP diastolic 55–117
[2018-01-22] MEDS ORDERED: hydrALAZINE HCL 20 MG/ML VL IV ONE (01:45)
[2018-01-22] MEDS: ACCU-CHEK COMFORT CURVE STRIP VI SCH ×6 (02:11→22:08)
[2018-01-22] MEDS: InsuLIN REG 1unit/0.01ml Soln (100units/ml) SC SCH ×6 (02:14→19:51)
[2018-01-22] MEDS: ONDANSETRON HCL 4 MG/2 ML VIAL IV PRN (03:31)
[2018-01-22 03:55] LABS: Basophils # (auto) 0 uL; Basophils % (auto) 0.2 % (0.0-2.0); Eosinophils # (auto) 0 uL; Hemoglobin 10.4 g/dL (12.2-16.2); Lymphocytes # (auto) 1.3 uL; Lymphocytes % (auto) 7.5 % (10.0-50.0); Mean Corpuscular Hgb Conc. 33.5 g/dL (32.0-36.0); Mean Corpuscular Volume 89.8 fL (80.0-100.0); Monocytes # (auto) 0.7 uL; Monocytes % (auto) 3.9 % (0.0-12.0); Neutrophils # (auto) 15.7 uL; Neutrophils % (auto) 88.4 % (37.0-80.0); Nucleated Red Blood Cells % 0.2 %; Platelet Count (auto) 136 10^3/uL (140-450); Red Blood Cells 3.46 10^6/uL (4.0-5.20); Red Cell Distribution Width 14.9 % (11.8-14.3); White Blood Cell 17.8 10^3/uL (4.4-10.8)
[2018-01-22 04:15] LABS: Albumin 2.8 g/dL (3.4-5.0); BUN/Creatinine Ratio 15.2; Bilirubin, Total 1.2 mg/dL (0.2-1.0); Calcium 7.6 mg/dL (8.5-10.1); Magnesium 3.3 mg/dL (1.6-2.6); Potassium 4.2 mmol/L (3.5-5.1); Total Protein 5.4 g/dL (6.4-8.2)
[2018-01-22] MEDS: MILRINONE 20MG/100ML 100 ML IV SCH ×2 (04:46→15:39)
[2018-01-22] MEDS: NICARDIPINE 25MG/250ML BAG KIT 250 ML IV SCH ×4 (05:11→20:11)
[2018-01-22] MEDS: FUROSEMIDE 40 MG TAB PO SCH ×2 (06:00→17:55)
[2018-01-22] MEDS: ACETYLCYSTEINE 10 %(100MG/ML) SOL 4ML NEB SCH ×3 (06:32→22:07)
[2018-01-22] MEDS: IPRATROPIUM BROM 0.5 MG/2.5ML INH SOL NEB PRN ×4 (06:32→22:07)
[2018-01-22] MEDS: KETOROLAC TROMETH 30 MG/ML 1ML VIAL IV PRN (07:51)
[2018-01-22] MEDS: hydrALAZINE HCL 20 MG/ML VL IV PRN (07:51)
[2018-01-22] MEDS: Boost Glucose Control 8 Ounces PO SCH ×3 (08:00→17:53)
[2018-01-22] MEDS: PANTOPRAZOLE 40 MG/10 ML VIAL IV SCH (10:21)
[2018-01-22] MEDS: CHLORHEXIDINE 0.12% ORAL rinse 473ML MT SCH ×2 (10:22→21:45)
[2018-01-22] MEDS: ASPirin 81 mg TAB PO SCH (10:22)
[2018-01-22] MEDS: DOCUSATE SOD 100 MG CAP PO SCH ×2 (10:22→21:44)
[2018-01-22] MEDS: ASCORBIC ACID 500 MG TAB PO SCH ×2 (10:22→21:44)
[2018-01-22] MEDS: METOPROLOL TARTRATE 25 MG TAB PO SCH ×2 (10:22→22:00)
[2018-01-22] MEDS: POTASSIUM CHL 20 Meq TABLET PO SCH ×2 (10:22→21:44)
[2018-01-22] MEDS: NITROGLYCERIN 0.4MG/HR TOPICAL PATCH TD SCH (10:23)
[2018-01-22] MEDS: SODIUM CHLORIDE 0.9% 1,000 ML IV SCH (10:39)
[2018-01-22] MEDS ORDERED: ALBUMIN 25% 50 ML IV ONE (13:00)
[2018-01-22] MEDS ORDERED: FUROSEMIDE 20 MG/2 ML VIAL IV ONE (13:15)
[2018-01-22] MEDS ORDERED: SODIUM CHLORIDE 0.9% 1,000 ML IV SCH (13:45)
[2018-01-22] MEDS ORDERED: CALCIUM GLUC 4.65meq/50ml D5AE 50 ML IV ONE (14:15)
[2018-01-22] MEDS ORDERED: POTASSIUM CHL 20 Meq TABLET PO PRN (14:15)
[2018-01-22] MEDS: SOD CHL 0.45% 1,000 ML IV SCH (15:04)
[2018-01-22] MEDS: PHENYLEPHRINE IV 250 ML IV SCH (15:40)
[2018-01-22] MEDS ORDERED: HALOPERIDOL LACTATE 5 MG/ML INJ VIAL IM PRN (16:00)
[2018-01-22 17:45] LABS: BUN/Creatinine Ratio 17.9; Calcium 7.9 mg/dL (8.5-10.1); Potassium 4.5 mmol/L (3.5-5.1)
[2018-01-22] MEDS: hydrALAZINE HCL 10 MG TAB PO SCH (17:54)
[2018-01-22] MEDS: AMIODARONE HCL 200 MG TAB PO SCH (21:44)
[2018-01-22] MEDS: ATORVASTATIN 20 MG TAB PO SCH (21:45)
[2018-01-22] MEDS: cloNIDine HCL 0.1 MG TAB PO SCH (21:45)
[2018-01-22] MEDS: ALBUMIN 25% 50 ML IV SCH (21:46)
[2018-01-22] MEDS ORDERED: ENALAPRIL MALEATE 10 MG TAB PO SCH (22:00)
[2018-01-22] MEDS: INSULIN LANTUS (GLARGINE) 1 /0.01ml (100units/ml) SC SCH (22:13)
[2018-01-22] MEDS: AMIODARONE HCL 900 MG in DEXTROSE 500 ML IV SCH (23:21)
[2018-01-23] VITALS (74 sets, daily range): BP systolic 111–160; BP diastolic 59–101
[2018-01-23] MEDS: InsuLIN REG 1unit/0.01ml Soln (100units/ml) SC SCH ×6 (00:35→19:53)
[2018-01-23] MEDS: NICARDIPINE 25MG/250ML BAG KIT 250 ML IV SCH ×5 (01:11→21:11)
[2018-01-23] MEDS: ACCU-CHEK COMFORT CURVE STRIP VI SCH ×6 (02:00→21:22)
[2018-01-23 04:20] LABS: Basophils # (auto) 0.1 uL; Basophils % (auto) 0.5 % (0.0-2.0); Eosinophils # (auto) 0.2 uL; Eosinophils % (auto) 1.2 % (0.0-7.0); Hematocrit 27.3 % (36.0-46.0); Hemoglobin 9.1 g/dL (12.2-16.2); Lymphocytes % (auto) 15.9 % (10.0-50.0); Mean Corpuscular Hemoglobin 30.4 pg (28.0-32.0); Mean Corpuscular Hgb Conc. 33.4 g/dL (32.0-36.0); Mean Corpuscular Volume 90.9 fL (80.0-100.0); Monocytes # (auto) 0.5 uL; Neutrophils # (auto) 9.9 uL; Neutrophils % (auto) 78.4 % (37.0-80.0); Nucleated Red Blood Cells % 0.1 %; Platelet Count (auto) 131 10^3/uL (140-450); Red Blood Cells 3.01 10^6/uL (4.0-5.20); Red Cell Distribution Width 14.7 % (11.8-14.3); White Blood Cell 12.6 10^3/uL (4.4-10.8)
[2018-01-23] MEDS: MILRINONE 20MG/100ML 100 ML IV SCH ×2 (04:36→15:58)
[2018-01-23 04:39] LABS: Albumin 2.8 g/dL (3.4-5.0); Bilirubin, Total 0.7 mg/dL (0.2-1.0); Calcium 7.6 mg/dL (8.5-10.1); Magnesium 3.1 mg/dL (1.6-2.6); Potassium 4.1 mmol/L (3.5-5.1); Total Protein 5.3 g/dL (6.4-8.2)
[2018-01-23] MEDS: ALBUMIN 25% 50 ML IV SCH (05:44)
[2018-01-23] MEDS: hydrALAZINE HCL 10 MG TAB PO SCH ×4 (05:45→18:22)
[2018-01-23] MEDS: FUROSEMIDE 40 MG TAB PO SCH ×2 (05:45→18:22)
[2018-01-23] MEDS: traMADol HCL 50 MG TAB PO PRN ×3 (05:45→19:54)
[2018-01-23] MEDS: IPRATROPIUM BROM 0.5 MG/2.5ML INH SOL NEB PRN ×4 (06:38→22:08)
[2018-01-23] MEDS: ACETYLCYSTEINE 10 %(100MG/ML) SOL 4ML NEB SCH ×3 (06:38→22:08)
[2018-01-23] MEDS: INSULIN LANTUS (GLARGINE) 1 /0.01ml (100units/ml) SC SCH ×2 (07:00→22:00)
[2018-01-23] MEDS: glipiZIDE 5 MG TAB PO SCH ×2 (08:22→18:21)
[2018-01-23] MEDS: Boost Glucose Control 8 Ounces PO SCH ×3 (08:23→17:58)
[2018-01-23] MEDS: SOD CHL 0.45% 1,000 ML IV SCH (09:45)
[2018-01-23] MEDS: NITROGLYCERIN 0.4MG/HR TOPICAL PATCH TD SCH (09:45)
[2018-01-23] MEDS: PANTOPRAZOLE 40 MG/10 ML VIAL IV SCH (09:46)
[2018-01-23] MEDS: ASPirin 81 mg TAB PO SCH (09:46)
[2018-01-23] MEDS: AMIODARONE HCL 200 MG TAB PO SCH ×2 (09:46→21:21)
[2018-01-23] MEDS: POTASSIUM CHL 20 Meq TABLET PO SCH ×2 (09:46→21:21)
[2018-01-23] MEDS: DOCUSATE SOD 100 MG CAP PO SCH ×2 (09:46→21:22)
[2018-01-23] MEDS: ASCORBIC ACID 500 MG TAB PO SCH ×2 (09:46→21:21)
[2018-01-23] MEDS: cloNIDine HCL 0.1 MG TAB PO SCH ×2 (09:48→21:22)
[2018-01-23] MEDS: CHLORHEXIDINE 0.12% ORAL rinse 473ML MT SCH ×2 (09:48→21:21)
[2018-01-23] MEDS: METOPROLOL TARTRATE 25 MG TAB PO SCH ×2 (10:00→21:22)
[2018-01-23] MEDS: PHENYLEPHRINE IV 250 ML IV SCH (15:58)
[2018-01-23] MEDS: ATORVASTATIN 20 MG TAB PO SCH (21:21)
[2018-01-23] MEDS: AMIODARONE HCL 900 MG in DEXTROSE 500 ML IV SCH (23:21)
[2018-01-24] VITALS (32 sets, daily range): BP systolic 116–162; BP diastolic 40–93
[2018-01-24] MEDS: ACCU-CHEK COMFORT CURVE STRIP VI SCH ×7 (00:10→20:32)
[2018-01-24] MEDS: hydrALAZINE HCL 10 MG TAB PO SCH ×4 (00:10→18:20)
[2018-01-24] MEDS: NICARDIPINE 25MG/250ML BAG KIT 250 ML IV SCH ×2 (02:11→09:02)
[2018-01-24] MEDS: traMADol HCL 50 MG TAB PO PRN ×2 (02:46→07:43)
[2018-01-24 03:56] LABS: Basophils # (auto) 0.1 uL; Basophils % (auto) 0.7 % (0.0-2.0); Eosinophils # (auto) 0.4 uL; Eosinophils % (auto) 4.3 % (0.0-7.0); Hematocrit 26.8 % (36.0-46.0); Hemoglobin 9.1 g/dL (12.2-16.2); Lymphocytes # (auto) 1.9 uL; Lymphocytes % (auto) 19.4 % (10.0-50.0); Mean Corpuscular Hemoglobin 30.8 pg (28.0-32.0); Mean Corpuscular Hgb Conc. 33.9 g/dL (32.0-36.0); Mean Corpuscular Volume 90.8 fL (80.0-100.0); Monocytes # (auto) 0.6 uL; Neutrophils # (auto) 6.8 uL; Neutrophils % (auto) 69.6 % (37.0-80.0); Nucleated Red Blood Cells % 0.1 %; Platelet Count (auto) 146 10^3/uL (140-450); Red Blood Cells 2.95 10^6/uL (4.0-5.20); Red Cell Distribution Width 14.3 % (11.8-14.3); White Blood Cell 9.7 10^3/uL (4.4-10.8)
[2018-01-24] MEDS: InsuLIN REG 1unit/0.01ml Soln (100units/ml) SC SCH ×6 (04:00→20:33)
[2018-01-24 04:05] LABS: Albumin 2.7 g/dL (3.4-5.0); Calcium 7.9 mg/dL (8.5-10.1); Magnesium 2.4 mg/dL (1.6-2.6); Potassium 4.2 mmol/L (3.5-5.1)
[2018-01-24 04:07] LABS: Bilirubin, Total 0.5 mg/dL (0.2-1.0); Total Protein 5.3 g/dL (6.4-8.2)
[2018-01-24] MEDS: MILRINONE 20MG/100ML 100 ML IV SCH (04:26)
[2018-01-24] MEDS: SOD CHL 0.45% 1,000 ML IV SCH (05:45)
[2018-01-24] MEDS: FUROSEMIDE 40 MG TAB PO SCH ×2 (05:57→18:19)
[2018-01-24] MEDS: ACETYLCYSTEINE 10 %(100MG/ML) SOL 4ML NEB SCH ×3 (06:17→22:00)
[2018-01-24] MEDS: IPRATROPIUM BROM 0.5 MG/2.5ML INH SOL NEB PRN ×3 (06:17→23:03)
[2018-01-24] MEDS: glipiZIDE 5 MG TAB PO SCH ×2 (09:01→18:21)
[2018-01-24] MEDS: CHLORHEXIDINE 0.12% ORAL rinse 473ML MT SCH ×2 (09:02→21:51)
[2018-01-24] MEDS: INSULIN LANTUS (GLARGINE) 1 /0.01ml (100units/ml) SC SCH ×2 (09:02→21:52)
[2018-01-24] MEDS: Boost Glucose Control 8 Ounces PO SCH ×3 (09:33→18:12)
[2018-01-24] MEDS: ASCORBIC ACID 500 MG TAB PO SCH ×2 (09:33→21:52)
[2018-01-24] MEDS: cloNIDine HCL 0.1 MG TAB PO SCH ×2 (09:34→21:51)
[2018-01-24] MEDS: POTASSIUM CHL 20 Meq TABLET PO SCH ×2 (09:34→21:52)
[2018-01-24] MEDS: DOCUSATE SOD 100 MG CAP PO SCH ×2 (09:34→21:51)
[2018-01-24] MEDS: ASPirin 81 mg TAB PO SCH (09:35)
[2018-01-24] MEDS: AMIODARONE HCL 200 MG TAB PO SCH ×2 (09:35→21:51)
[2018-01-24] MEDS: METOPROLOL TARTRATE 25 MG TAB PO SCH ×2 (09:36→21:52)
[2018-01-24] MEDS: NITROGLYCERIN 0.4MG/HR TOPICAL PATCH TD SCH (09:36)
[2018-01-24] MEDS: PANTOPRAZOLE 40 MG/10 ML VIAL IV SCH (09:36)
[2018-01-24] MEDS: HYDROcodone-ACET 5/325MG TAB PO PRN ×3 (10:21→21:45)
[2018-01-24] MEDS: ATORVASTATIN 20 MG TAB PO SCH (21:52)
[2018-01-24] MEDS ORDERED: ACETYLCYSTEINE 20%(200MG/ML) SOL 4ML ONE (22:33)
[2018-01-25] VITALS: BP 124/74
[2018-01-25] MEDS: ACCU-CHEK COMFORT CURVE STRIP VI SCH ×6 (00:31→20:00)
[2018-01-25] MEDS: HYDROcodone-ACET 5/325MG TAB PO PRN ×4 (02:50→23:27)
[2018-01-25] MEDS: ONDANSETRON HCL 4 MG/2 ML VIAL IV PRN (02:50)
[2018-01-25 04:00] VITALS: BP 136/85
[2018-01-25] MEDS: InsuLIN REG 1unit/0.01ml Soln (100units/ml) SC SCH ×6 (04:00→21:12)
[2018-01-25] MEDS: INSULIN LANTUS (GLARGINE) 1 /0.01ml (100units/ml) SC SCH ×2 (06:41→22:55)
[2018-01-25] MEDS: hydrALAZINE HCL 10 MG TAB PO SCH ×4 (06:41→17:40)
[2018-01-25] MEDS: glipiZIDE 5 MG TAB PO SCH ×2 (06:42→17:40)
[2018-01-25] MEDS: FUROSEMIDE 40 MG TAB PO SCH ×2 (06:42→17:41)
[2018-01-25] MEDS: ACETYLCYSTEINE 10 %(100MG/ML) SOL 4ML NEB SCH ×3 (06:43→22:00)
[2018-01-25] MEDS: IPRATROPIUM BROM 0.5 MG/2.5ML INH SOL NEB PRN ×3 (06:43→22:05)
[2018-01-25 08:00] VITALS: BP 142/89
[2018-01-25] MEDS: Boost Glucose Control 8 Ounces PO SCH ×3 (08:00→17:41)
[2018-01-25] MEDS: PANTOPRAZOLE 40 MG/10 ML VIAL IV SCH (09:31)
[2018-01-25] MEDS: CHLORHEXIDINE 0.12% ORAL rinse 473ML MT SCH ×2 (09:31→22:45)
[2018-01-25] MEDS: ASCORBIC ACID 500 MG TAB PO SCH (09:32)
[2018-01-25] MEDS: POTASSIUM CHL 20 Meq TABLET PO SCH ×2 (09:32→22:52)
[2018-01-25] MEDS: cloNIDine HCL 0.1 MG TAB PO SCH ×2 (09:32→22:57)
[2018-01-25] MEDS: AMIODARONE HCL 200 MG TAB PO SCH ×2 (09:33→22:52)
[2018-01-25] MEDS: ASPirin 81 mg TAB PO SCH (09:33)
[2018-01-25] MEDS: DOCUSATE SOD 100 MG CAP PO SCH ×2 (09:33→22:51)
[2018-01-25] MEDS: METOPROLOL TARTRATE 25 MG TAB PO SCH ×2 (09:34→22:56)
[2018-01-25] MEDS: NITROGLYCERIN 0.4MG/HR TOPICAL PATCH TD SCH (09:35)
[2018-01-25 11:50] VITALS: BP 128/78
[2018-01-25 15:50] VITALS: BP 115/79
[2018-01-25 19:50] VITALS: BP 129/73
[2018-01-25] MEDS: traMADol HCL 50 MG TAB PO PRN (21:20)
[2018-01-25] MEDS: ATORVASTATIN 20 MG TAB PO SCH (22:52)
[2018-01-26] VITALS (8 sets, daily range): BP systolic 111–135; BP diastolic 61–90
[2018-01-26] MEDS: ACCU-CHEK COMFORT CURVE STRIP VI SCH ×5 (00:34→17:00)
[2018-01-26] MEDS: InsuLIN REG 1unit/0.01ml Soln (100units/ml) SC SCH ×5 (00:34→17:00)
[2018-01-26] MEDS: hydrALAZINE HCL 10 MG TAB PO SCH ×4 (00:37→17:53)
[2018-01-26] MEDS ORDERED: ACETYLCYSTEINE 20%(200MG/ML) SOL 4ML ONE (06:01)
[2018-01-26 06:02] LABS: Albumin 2.9 g/dL (3.4-5.0); BUN/Creatinine Ratio 24.9; Calcium 8.6 mg/dL (8.5-10.1); Potassium 4.4 mmol/L (3.5-5.1)
[2018-01-26 06:06] LABS: Bilirubin, Total 0.9 mg/dL (0.2-1.0); Phosphorus 3.6 mg/dL (2.5-4.90); Total Protein 6.7 g/dL (6.4-8.2)
[2018-01-26] MEDS: ACETYLCYSTEINE 10 %(100MG/ML) SOL 4ML NEB SCH ×2 (06:18→14:54)
[2018-01-26] MEDS: IPRATROPIUM BROM 0.5 MG/2.5ML INH SOL NEB PRN (06:18)
[2018-01-26] MEDS: INSULIN LANTUS (GLARGINE) 1 /0.01ml (100units/ml) SC SCH (06:20)
[2018-01-26] MEDS: glipiZIDE 5 MG TAB PO SCH ×2 (06:20→17:52)
[2018-01-26] MEDS: FUROSEMIDE 40 MG TAB PO SCH ×2 (06:20→17:51)
[2018-01-26] MEDS: HYDROcodone-ACET 5/325MG TAB PO PRN ×3 (08:14→17:55)
[2018-01-26] MEDS: Boost Glucose Control 8 Ounces PO SCH ×2 (08:26→12:13)
[2018-01-26] MEDS ORDERED: DEXTROSE (50%) 50ML SYRG IV PRN (09:15)
[2018-01-26] MEDS: IPRATROPIUM BROM 0.5 MG/2.5ML INH SOL NEB SCH ×3 (10:05→14:54)
[2018-01-26] MEDS: PANTOPRAZOLE 40 MG/10 ML VIAL IV SCH (10:06)
[2018-01-26] MEDS: CHLORHEXIDINE 0.12% ORAL rinse 473ML MT SCH (10:07)
[2018-01-26] MEDS: NITROGLYCERIN 0.4MG/HR TOPICAL PATCH TD SCH (10:07)
[2018-01-26] MEDS: DOCUSATE SOD 100 MG CAP PO SCH (10:07)
[2018-01-26] MEDS: POTASSIUM CHL 20 Meq TABLET PO SCH (10:07)
[2018-01-26] MEDS: ASPirin 81 mg TAB PO SCH (10:07)
[2018-01-26] MEDS: AMIODARONE HCL 200 MG TAB PO SCH (10:07)
[2018-01-26] MEDS: METOPROLOL TARTRATE 25 MG TAB PO SCH (10:10)
[2018-01-26] MEDS ORDERED: ASPI81CH43 PO (12:23)
[2018-01-26] MEDS ORDERED: AMI200T PO (12:23)
[2018-01-26] MEDS ORDERED: GLIP-115 PO (12:23)
[2018-01-26] MEDS ORDERED: MET25T PO (12:23)
[2018-01-26] MEDS ORDERED: HYDR10TA26 PO (12:23)
[2018-01-26] MEDS ORDERED: TRAM50TA2 PO (12:23)
[2018-01-26] MEDS ORDERED: POTA20TA53 PO (12:23)
[2018-01-26] MEDS ORDERED: FURO40TA4 PO (12:23)
[2018-01-26] MEDS ORDERED: DOCU100C8 PO (12:23)
[2018-01-26] MEDS ORDERED: fentaNYL CITRATE 100 MCG/2 ML VL IV PRN (14:30)
[2018-01-26] MEDS: traMADol HCL 50 MG TAB PO PRN (16:17)
[2018-01-26] MEDS ORDERED: InsuLIN REG 1unit/0.01ml Soln (100units/ml) SC SCH (22:00)
[2018-01-27] MEDS ORDERED: PANTOPRAZOLE 40 MG TAB PO SCH (10:00)
== END 2018-01-26 18:45 | disposition home health service (06) | DRG 165 ==
LOC: ER 00:21 → TELE 00:22 → TELE-CENTR 11:17 → ICU WEST 01-18 21:05 → DOU IN ICU 01-24 10:54
PROVIDERS: ADMIT Nurse Practitioner; ATTEND Internal Medicine Pulmonary Disease
PROC: 4A023N7 Measurement of Cardiac Sampling and Pressure, Left Heart, Percutaneous Approach (ICD-10-PCS; 2018-01-14)
PROC: B2111ZZ Fluoroscopy of Multiple Coronary Arteries using Low Osmolar Contrast (ICD-10-PCS; 2018-01-14)
PROC: B24BZZ4 Ultrasonography of Heart with Aorta, Transesophageal (ICD-10-PCS; 2018-01-16)
PROC: 02100Z9 Bypass Coronary Artery, One Artery from Left Internal Mammary, Open Approach (ICD-10-PCS; 2018-01-19)
PROC: 021109W Bypass Coronary Artery, Two Arteries from Aorta with Autologous Venous Tissue, Open Approach (ICD-10-PCS; 2018-01-19)
PROC: 5A1221Z Performance of Cardiac Output, Continuous (ICD-10-PCS; 2018-01-19)
PROC: 06BQ4ZZ Excision of Left Saphenous Vein, Percutaneous Endoscopic Approach (ICD-10-PCS; 2018-01-19)
PROC: 02L74CK Occlusion of Left Atrial Appendage with Extraluminal Device, Percutaneous Endoscopic Approach (ICD-10-PCS; 2018-01-19)
PROC: B24BZZ4 Ultrasonography of Heart with Aorta, Transesophageal (ICD-10-PCS; 2018-01-19)
PROC: 02UG0JZ Supplement Mitral Valve with Synthetic Substitute, Open Approach (ICD-10-PCS; 2018-01-19)
PROC: 5A09357 Assistance with Respiratory Ventilation, Less than 24 Consecutive Hours, Continuous Positive Airway Pressure (ICD-10-PCS; principal; 2018-01-20)
PROC: 5A09357 Assistance with Respiratory Ventilation, Less than 24 Consecutive Hours, Continuous Positive Airway Pressure (ICD-10-PCS; 2018-01-21)
PROC: 5A09357 Assistance with Respiratory Ventilation, Less than 24 Consecutive Hours, Continuous Positive Airway Pressure (ICD-10-PCS; 2018-01-22)
PROC: 5A09357 Assistance with Respiratory Ventilation, Less than 24 Consecutive Hours, Continuous Positive Airway Pressure (ICD-10-PCS; 2018-01-23)
PROC: 5A09357 Assistance with Respiratory Ventilation, Less than 24 Consecutive Hours, Continuous Positive Airway Pressure (ICD-10-PCS; 2018-01-24)
PROC: 5A09357 Assistance with Respiratory Ventilation, Less than 24 Consecutive Hours, Continuous Positive Airway Pressure (ICD-10-PCS; 2018-01-25)
PROC: 5A09357 Assistance with Respiratory Ventilation, Less than 24 Consecutive Hours, Continuous Positive Airway Pressure (ICD-10-PCS; 2018-01-26)
DX: I21.3 ST elevation (STEMI) myocardial infarction of unspecified site (principal); J96.00 Acute respiratory failure, unspecified whether with hypoxia or hypercapnia; N17.0 Acute kidney failure with tubular necrosis; I62.01 Nontraumatic acute subdural hemorrhage; E87.0 Hyperosmolality and hypernatremia; I42.9 Cardiomyopathy, unspecified; E44.1 Mild protein-calorie malnutrition; I48.91 Unspecified atrial fibrillation; R00.1 Bradycardia, unspecified; E87.3 Alkalosis; I25.119 Atherosclerotic heart disease of native coronary artery with unspecified angina pectoris; I50.9 Heart failure, unspecified; N18.3 Chronic kidney disease, stage 3 (moderate); F03.90 Unspecified dementia, unspecified severity, without behavioral disturbance, psychotic disturbance, mood disturbance, and anxiety; I13.0 Hypertensive heart and chronic kidney disease with heart failure and stage 1 through stage 4 chronic kidney disease, or unspecified chronic kidney disease; E11.22 Type 2 diabetes mellitus with diabetic chronic kidney disease; E11.51 Type 2 diabetes mellitus with diabetic peripheral angiopathy without gangrene; E11.65 Type 2 diabetes mellitus with hyperglycemia; E66.9 Obesity, unspecified; I70.0 Atherosclerosis of aorta; E78.00 Pure hypercholesterolemia, unspecified; E78.5 Hyperlipidemia, unspecified; F41.9 Anxiety disorder, unspecified; J93.9 Pneumothorax, unspecified; E87.6 Hypokalemia; Z90.49 Acquired absence of other specified parts of digestive tract; I08.1 Rheumatic disorders of both mitral and tricuspid valves; N05.8 Unspecified nephritic syndrome with other morphologic changes; I69.354 Hemiplegia and hemiparesis following cerebral infarction affecting left non-dominant side; Z68.27 Body mass index [BMI] 27.0-27.9, adult; Z79.82 Long term (current) use of aspirin; Z79.899 Other long term (current) drug therapy; Z80.8 Family history of malignant neoplasm of other organs or systems; Z82.3 Family history of stroke; Z82.49 Family history of ischemic heart disease and other diseases of the circulatory system; Z83.3 Family history of diabetes mellitus; Z95.1 Presence of aortocoronary bypass graft; Z88.6 Allergy status to analgesic agent; Z88.5 Allergy status to narcotic agent
CPT/HCPCS: 10022; 36415; 36600; 70450; 71045; 76604; 80048; 80053; 81001; 81025; 82010; 82040; 82310; 82570; 82805; 82962; 83036; 83735; 84100; 84132; 84156; 84300; 84443; 84484; 84550; 85007; 85014; 85018; 85025; 85027; 85379; 85576; 85610; 85730; 86850; 86900; 86901; 86920; 87070; 87081; 87205; 92610; 93005; 93306; 93312; 93458; 93886; 93970; 94002; 94003; 94640; 94660; 94668; 94761; 96361; 96372; 96374; 97163; 99152; C1751; C1768; C9113; J0131; J0153; J0610; J1100; J1642; J1644; J1815; J1885; J2250; J2405; J2440; J2704; J3430; J3480; J7060; P9047; Q9967

== ENCOUNTER 2018-02-03 03:26 | Emergency (ER) | payer MEDICAID ==
[~2018-02-03] VITALS: Ht 167.6 cm; Wt 73.5 kg
[~2018-02-03 03:26] MED LIST changes: -ACETAMINOPHEN-COD; +AMI200T PO; +ASPI81CH43 PO; +DOCU100C8 PO; -ENAL20TA70; +FURO40TA4 PO; +GLIP-115 PO; -GLYB2.5T71; +HYDR10TA26 PO; -HYDR25TA4; +MET25T PO; +POTA20TA53 PO; +TRAM50TA2 PO
[2018-02-03] MEDS ORDERED: cloNIDine HCL 0.1 MG TAB ONE (04:43)
[2018-02-03] MEDS ORDERED: cloNIDine HCL 0.1 MG TAB PO ONE (05:00)
[2018-02-03 05:41] LABS: Monocytes # (auto) 0.6 uL
[2018-02-03 05:43] LABS: Basophils # (auto) 0.1 uL; Basophils % (auto) 1.5 % (0.0-2.0); Eosinophils # (auto) 0.4 uL; Eosinophils % (auto) 3.9 % (0.0-7.0); Hematocrit 26.1 % (36.0-46.0); Lymphocytes # (auto) 1.3 uL; Lymphocytes % (auto) 13.8 % (10.0-50.0); Mean Corpuscular Hemoglobin 30.4 pg (28.0-32.0); Mean Corpuscular Hgb Conc. 34.4 g/dL (32.0-36.0); Mean Corpuscular Volume 88.1 fL (80.0-100.0); Monocytes % (auto) 6.6 % (0.0-12.0); Neutrophils % (auto) 74.2 % (37.0-80.0); Red Blood Cells 2.96 10^6/uL (4.0-5.20); Red Cell Distribution Width 14.2 % (11.8-14.3); White Blood Cell 9.4 10^3/uL (4.4-10.8)
[2018-02-03 05:54] LABS: Platelet Count (auto) 905 10^3/uL (140-450)
[2018-02-03 06:03] LABS: Albumin 2.4 g/dL (3.4-5.0); BUN/Creatinine Ratio 14.2; Calcium 8.6 mg/dL (8.5-10.1); Potassium 4.5 mmol/L (3.5-5.1)
[2018-02-03 06:06] LABS: Bilirubin, Total 0.3 mg/dL (0.2-1.0); Total Protein 7.3 g/dL (6.4-8.2)
[2018-02-03] MEDS ORDERED: ASPI81TA27 PO (06:48)
[2018-02-03] MEDS ORDERED: FURO40TA4 PO (06:48)
[2018-02-03] MEDS ORDERED: DOCU100T15 PO (06:48)
[2018-02-03] MEDS ORDERED: GLIP-115 PO (06:48)
[2018-02-03] MEDS ORDERED: HYDR-4683 PO (06:48)
[2018-02-03] MEDS ORDERED: AMIO200T33 PO (06:48)
[2018-02-03] MEDS ORDERED: METO25TA62 PO (06:48)
[2018-02-03] MEDS ORDERED: POTA10TA51 PO (06:48)
[2018-02-03] MEDS ORDERED: HYDR10TA26 PO (06:48)
[2018-02-03] MEDS ORDERED: PIPERACILLIN-TAZOB 3.375GM 100 ML IV ONE (08:45)
[2018-02-03] MEDS ORDERED: VANCOMYCIN 1GM/250ML 250 ML IV ONE (08:45)
[2018-02-03 09:40] LABS: Urine Bacteria NONE SEEN /hpf (None Seen); Urine Blood TRACE /uL (Negative); Urine Specific Gravity 1.013 (1.001-1.035); Urine WBC 1 /hpf (0 - 5)
[2018-02-03] MEDS ORDERED: HYDROcodone-ACET 10/325MG TAB PO ONE (10:00)
[2018-02-03 14:04] VITALS: BP 159/86
== END 2018-02-03 14:25 | disposition home or self-care (01) ==
LOC: ER 03:26
DX: I10 Essential (primary) hypertension (principal); E11.9 Type 2 diabetes mellitus without complications; R07.9 Chest pain, unspecified; Z95.1 Presence of aortocoronary bypass graft; Z98.890 Other specified postprocedural states; Z95.2 Presence of prosthetic heart valve; Z88.6 Allergy status to analgesic agent; Z79.899 Other long term (current) drug therapy; Z86.73 Personal history of transient ischemic attack (TIA), and cerebral infarction without residual deficits; Z90.49 Acquired absence of other specified parts of digestive tract
CPT/HCPCS: 36415; 71250; 80053; 81001; 85025; 87040; 96365; 96366; 96367; 99285; J2543; J3370

== ENCOUNTER → 2018-02-08 | Outpatient (CLI) | payer MEDICAID ==
[~2018-02-08] MED LIST changes: +AMIO200T33 PO; +ASPI81TA27 PO; +DOCU100T15 PO; +HYDR-4683 PO; +LIDOCAINE 2% (LOCAL ANESTH.) PF 5ml SDV ONE; +METO25TA62 PO; +POTA10TA51 PO
== END | disposition home or self-care (01) ==
LOC: XYW 10:22
PROVIDERS: ATTEND Thoracic Surgery (Cardiothoracic Vascular Surgery)
DX: J90 Pleural effusion, not elsewhere classified (principal); Z88.6 Allergy status to analgesic agent; F41.9 Anxiety disorder, unspecified; F32.9 Major depressive disorder, single episode, unspecified; Z87.891 Personal history of nicotine dependence
CPT/HCPCS: 10022; 32555; 71045; 76604; 76942; C1729

== ENCOUNTER 2018-02-09 17:26 | Inpatient (IN) | payer MEDICAID ==
[~2018-02-09] VITALS: Ht 167.6 cm; Wt 88.5 kg
[~2018-02-09 17:26] MED LIST changes: -LIDOCAINE 2% (LOCAL ANESTH.) PF 5ml SDV ONE
[2018-02-09 19:33] LABS: Basophils # (auto) 0.1 uL; Eosinophils # (auto) 0.2 uL; Lymphocytes # (auto) 1.1 uL; Mean Corpuscular Hemoglobin 29.7 pg (28.0-32.0); Monocytes # (auto) 0.4 uL; Neutrophils # (auto) 4.9 uL
[2018-02-09 19:34] LABS: Basophils % (auto) 1.4 % (0.0-2.0); Eosinophils % (auto) 3.7 % (0.0-7.0); Hematocrit 27.2 % (36.0-46.0); Hemoglobin 9.2 g/dL (12.2-16.2); Mean Corpuscular Hgb Conc. 33.9 g/dL (32.0-36.0); Mean Corpuscular Volume 87.5 fL (80.0-100.0); Monocytes % (auto) 6.1 % (0.0-12.0); Neutrophils % (auto) 72.8 % (37.0-80.0); Nucleated Red Blood Cells % 0.1 %; Platelet Count (auto) 637 10^3/uL (140-450); Red Blood Cells 3.11 10^6/uL (4.0-5.20); Red Cell Distribution Width 14.7 % (11.8-14.3); White Blood Cell 6.7 10^3/uL (4.4-10.8)
[2018-02-09 19:45] LABS: Albumin 2.3 g/dL (3.4-5.0); BUN/Creatinine Ratio 13.6; Bilirubin, Total 0.2 mg/dL (0.2-1.0); Calcium 8.3 mg/dL (8.5-10.1); Magnesium 2.2 mg/dL (1.6-2.6); Potassium 4.1 mmol/L (3.5-5.1); Total Protein 6.8 g/dL (6.4-8.2)
[2018-02-09 19:51] LABS: INR 0.99 (0.9-1.15); Partial Thromboplastin Time 31.6 sec (22.64-33.71); Prothrombin Time 10.8 sec (9.37-12.3)
[2018-02-09] MEDS ORDERED: cloNIDine HCL 0.1 MG TAB PO ONE (20:00)
[2018-02-09] MEDS ORDERED: LORazepam 0.5 MG TAB PO ONE (20:00)
[2018-02-09] MEDS ORDERED: FUROSEMIDE 20 MG/2 ML VIAL IV ONE (20:00)
[2018-02-09] MEDS ORDERED: HYDROcodone-ACET 10/325MG TAB PO ONE (20:15)
[2018-02-10] VITALS (7 sets, daily range): BP systolic 117–162; BP diastolic 54–108
[2018-02-10] MEDS ORDERED: ONDANSETRON HCL 4 MG/2 ML VIAL IV PRN (03:00)
[2018-02-10] MEDS ORDERED: NITROGLYCERIN 0.4 MG SL TAB SL PRN (03:00)
[2018-02-10] MEDS ORDERED: ACETAMINOPHEN 500 MG TAB PO PRN (03:00)
[2018-02-10] MEDS ORDERED: HYDROcodone-ACET 5/325MG TAB PO PRN (03:00)
[2018-02-10] MEDS ORDERED: hydrALAZINE HCL 20 MG/ML VL IV SCH (06:00)
[2018-02-10 08:20] LABS: BUN/Creatinine Ratio 13.6; Calcium 8.3 mg/dL (8.5-10.1); Potassium 3.7 mmol/L (3.5-5.1)
[2018-02-10 08:21] LABS: Cholesterol 178 mg/dL (< 200); HDL Cholesterol 36 mg/dL (40-59); LDL Cholesterol 115 mg/dL (< 100); Triglycerides 258 mg/dL (< 150)
[2018-02-10 08:57] LABS: Basophils # (auto) 0.1 uL; Eosinophils # (auto) 0.3 uL; Hemoglobin 9.1 g/dL (12.2-16.2); Monocytes # (auto) 0.4 uL; Neutrophils # (auto) 4.3 uL; White Blood Cell 6.4 10^3/uL (4.4-10.8)
[2018-02-10 08:59] LABS: Basophils % (auto) 2.1 % (0.0-2.0); Eosinophils % (auto) 4.1 % (0.0-7.0); Hematocrit 27.1 % (36.0-46.0); Lymphocytes # (auto) 1.3 uL; Lymphocytes % (auto) 20.2 % (10.0-50.0); Mean Corpuscular Hemoglobin 29.4 pg (28.0-32.0); Mean Corpuscular Hgb Conc. 33.7 g/dL (32.0-36.0); Mean Corpuscular Volume 87.4 fL (80.0-100.0); Monocytes % (auto) 5.8 % (0.0-12.0); Neutrophils % (auto) 67.8 % (37.0-80.0); Nucleated Red Blood Cells % 0.1 %; Platelet Count (auto) 599 10^3/uL (140-450); Red Cell Distribution Width 14.6 % (11.8-14.3)
[2018-02-10] MEDS: AMIODARONE HCL 200 MG TAB PO SCH (09:58)
[2018-02-10] MEDS: ASPirin-EC 81 mg tab PO SCH (09:59)
[2018-02-10] MEDS ORDERED: METOPROLOL TARTRATE 25 MG TAB PO SCH (10:00)
[2018-02-10] MEDS ORDERED: FUROSEMIDE 40 MG/4 ML VIAL IV ONE (10:00)
[2018-02-10] MEDS: FUROSEMIDE 40 MG TAB PO SCH (10:00)
[2018-02-10] MEDS ORDERED: DEXTROSE (50%) 50ML SYRG IV PRN (12:00)
[2018-02-10] MEDS ORDERED: ENALAPRIL MALEATE 2.5 MG TAB PO SCH (12:10)
[2018-02-10] MEDS ORDERED: IOHEXOL 350 MG/ML 100ML IJ ONE (12:20)
[2018-02-10] MEDS: ACETYLCYSTEINE ORAL for CIN 20%(200MG/ML) 4ML PO SCH ×2 (12:52→22:16)
[2018-02-10] MEDS: IPRATROPIUM BROM 0.5 MG/2.5ML INH SOL NEB SCH ×2 (13:21→20:00)
[2018-02-10] MEDS ORDERED: SODIUM CHLORIDE 0.9% 1,000 ML IV SCH ×2 (13:30→13:45)
[2018-02-10] MEDS: OXYCODONE W/ ACETAMINOPHEN 5/325MG TABLET PO PRN (14:09)
[2018-02-10] MEDS: Boost Glucose Control 8 Ounces PO SCH ×2 (17:00→20:23)
[2018-02-10] MEDS: ACCU-CHEK COMFORT CURVE STRIP VI SCH ×2 (17:00→22:16)
[2018-02-10] MEDS: InsuLIN REG 1unit/0.01ml Soln (100units/ml) SC SCH ×2 (17:23→22:47)
[2018-02-10] MEDS: ATORVASTATIN 20 MG TAB PO SCH (22:15)
[2018-02-10] MEDS: HYDROcodone-ACET 10/325MG TAB PO PRN (22:15)
[2018-02-10] MEDS: METOPROLOL TARTRATE 50 MG TAB PO SCH (22:16)
[2018-02-11] MEDS: IPRATROPIUM BROM 0.5 MG/2.5ML INH SOL NEB SCH ×4 (01:09→18:08)
[2018-02-11] MEDS: HYDROcodone-ACET 10/325MG TAB PO PRN ×3 (05:28→17:59)
[2018-02-11 06:05] VITALS: BP 158/95
[2018-02-11] MEDS: ACCU-CHEK COMFORT CURVE STRIP VI SCH ×4 (06:40→21:52)
[2018-02-11] MEDS: InsuLIN REG 1unit/0.01ml Soln (100units/ml) SC SCH ×4 (06:40→21:52)
[2018-02-11 07:42] LABS: Potassium 3.7 mmol/L (3.5-5.1)
[2018-02-11 07:45] LABS: BUN/Creatinine Ratio 15.5
[2018-02-11 08:05] LABS: Basophils # (auto) 0.1 uL; Basophils % (auto) 2.1 % (0.0-2.0); Eosinophils # (auto) 0.3 uL; Eosinophils % (auto) 5.1 % (0.0-7.0); Hematocrit 29.2 % (36.0-46.0); Hemoglobin 9.9 g/dL (12.2-16.2); Lymphocytes # (auto) 1.7 uL; Lymphocytes % (auto) 25.3 % (10.0-50.0); Mean Corpuscular Hemoglobin 29.6 pg (28.0-32.0); Mean Corpuscular Volume 87.2 fL (80.0-100.0); Monocytes # (auto) 0.4 uL; Monocytes % (auto) 5.9 % (0.0-12.0); Neutrophils # (auto) 4.2 uL; Neutrophils % (auto) 61.6 % (37.0-80.0); Platelet Count (auto) 617 10^3/uL (140-450); Red Blood Cells 3.35 10^6/uL (4.0-5.20); White Blood Cell 6.8 10^3/uL (4.4-10.8)
[2018-02-11] MEDS: Boost Glucose Control 8 Ounces PO SCH ×3 (08:29→19:35)
[2018-02-11 09:00] VITALS: BP 135/86
[2018-02-11] MEDS: FUROSEMIDE 40 MG TAB PO SCH (09:53)
[2018-02-11] MEDS: ASPirin-EC 81 mg tab PO SCH (09:53)
[2018-02-11] MEDS: METOPROLOL TARTRATE 50 MG TAB PO SCH ×2 (09:53→20:59)
[2018-02-11] MEDS: AMIODARONE HCL 200 MG TAB PO SCH (09:53)
[2018-02-11 13:00] VITALS: BP 154/77
[2018-02-11 16:49] VITALS: BP 152/92
[2018-02-11] MEDS: ATORVASTATIN 20 MG TAB PO SCH (20:59)
[2018-02-11] MEDS: OXYCODONE W/ ACETAMINOPHEN 5/325MG TABLET PO PRN (21:02)
[2018-02-11 22:34] VITALS: BP 182/91
[2018-02-12] VITALS (7 sets, daily range): BP systolic 154–164; BP diastolic 73–101
[2018-02-12] MEDS ORDERED: LORazepam 0.5 MG TAB PO ONE (00:30)
[2018-02-12] MEDS: HYDROcodone-ACET 10/325MG TAB PO PRN ×3 (00:54→20:45)
[2018-02-12] MEDS: ACCU-CHEK COMFORT CURVE STRIP VI SCH ×4 (06:48→21:57)
[2018-02-12] MEDS: IPRATROPIUM BROM 0.5 MG/2.5ML INH SOL NEB SCH ×4 (06:48→18:00)
[2018-02-12] MEDS: InsuLIN REG 1unit/0.01ml Soln (100units/ml) SC SCH ×4 (06:49→21:57)
[2018-02-12] MEDS: Boost Glucose Control 8 Ounces PO SCH ×3 (08:00→18:03)
[2018-02-12] MEDS: METOPROLOL TARTRATE 50 MG TAB PO SCH ×2 (09:31→21:42)
[2018-02-12] MEDS: ASPirin-EC 81 mg tab PO SCH (09:31)
[2018-02-12] MEDS: AMIODARONE HCL 200 MG TAB PO SCH (09:31)
[2018-02-12] MEDS: FUROSEMIDE 40 MG TAB PO SCH (09:31)
[2018-02-12] MEDS ORDERED: EPINEPHrine HCL 1 MG/1 ML AMP ONE (10:09)
[2018-02-12] MEDS ORDERED: LIDOCAINE HCL 2% TOP JELLY 5ML TOP ONE (10:10)
[2018-02-12] MEDS ORDERED: LIDOCAINE 2% (LOCAL ANESTH.) PF 5ml SDV ONE (10:15)
[2018-02-12] MEDS ORDERED: GLYCOPYRROLATE 0.2 MG/ML 1ML VIAL ONE (10:57)
[2018-02-12] MEDS: MIDAZOLAM HCL 5 MG/ML-1ML VIAL ONE ×2 (14:01→14:06)
[2018-02-12] MEDS: fentaNYL CITRATE 100 MCG/2 ML VL ONE ×2 (14:03→14:10)
[2018-02-12] MEDS ORDERED: ENALAPRILAT 1.25 MG/ML-1ML VIAL IV ONE ×2 (14:08→16:45)
[2018-02-12] MEDS ORDERED: hydrALAZINE HCL 20 MG/ML VL ONE (15:12)
[2018-02-12] MEDS ORDERED: hydrALAZINE HCL 20 MG/ML VL IV ONE (15:15)
[2018-02-12] MEDS ORDERED: THROAT LOZENGES(CEPASTAT) MT PRN (18:15)
[2018-02-12] MEDS: ATORVASTATIN 20 MG TAB PO SCH (21:41)
[2018-02-12] MEDS: hydrALAZINE HCL 25 MG TAB PO SCH (21:42)
[2018-02-13] VITALS (7 sets, daily range): BP systolic 148–164; BP diastolic 91–98
[2018-02-13] MEDS: HYDROcodone-ACET 10/325MG TAB PO PRN ×3 (04:14→20:27)
[2018-02-13] MEDS: hydrALAZINE HCL 25 MG TAB PO SCH ×3 (06:28→22:02)
[2018-02-13] MEDS: IPRATROPIUM BROM 0.5 MG/2.5ML INH SOL NEB SCH ×4 (06:33→19:01)
[2018-02-13 06:52] LABS: Basophils # (auto) 0.1 uL; Nucleated Red Blood Cells % 0.1 %
[2018-02-13 06:58] LABS: Basophils % (auto) 1.4 % (0.0-2.0); Eosinophils # (auto) 0.2 uL; Eosinophils % (auto) 3.2 % (0.0-7.0); Hemoglobin 9.6 g/dL (12.2-16.2); Lymphocytes # (auto) 1.4 uL; Lymphocytes % (auto) 18.7 % (10.0-50.0); Mean Corpuscular Hemoglobin 29.6 pg (28.0-32.0); Mean Corpuscular Hgb Conc. 34.2 g/dL (32.0-36.0); Mean Corpuscular Volume 86.6 fL (80.0-100.0); Monocytes # (auto) 0.5 uL; Monocytes % (auto) 6.2 % (0.0-12.0); Neutrophils # (auto) 5.3 uL; Neutrophils % (auto) 70.5 % (37.0-80.0); Platelet Count (auto) 638 10^3/uL (140-450); Red Blood Cells 3.23 10^6/uL (4.0-5.20); Red Cell Distribution Width 15.1 % (11.8-14.3); White Blood Cell 7.5 10^3/uL (4.4-10.8)
[2018-02-13] MEDS: InsuLIN REG 1unit/0.01ml Soln (100units/ml) SC SCH ×4 (07:00→22:01)
[2018-02-13 07:22] LABS: Calcium 9.1 mg/dL (8.5-10.1); Potassium 3.8 mmol/L (3.5-5.1)
[2018-02-13 07:24] LABS: BUN/Creatinine Ratio 16.1
[2018-02-13] MEDS: ACCU-CHEK COMFORT CURVE STRIP VI SCH ×4 (07:26→22:01)
[2018-02-13] MEDS: Boost Glucose Control 8 Ounces PO SCH ×3 (08:51→18:18)
[2018-02-13] MEDS: ASPirin-EC 81 mg tab PO SCH (09:33)
[2018-02-13] MEDS: FUROSEMIDE 40 MG TAB PO SCH (09:33)
[2018-02-13] MEDS: METOPROLOL TARTRATE 50 MG TAB PO SCH ×2 (09:33→22:01)
[2018-02-13] MEDS: AMIODARONE HCL 200 MG TAB PO SCH (09:34)
[2018-02-13] MEDS: ATORVASTATIN 20 MG TAB PO SCH (22:02)
[2018-02-14] MEDS: HYDROcodone-ACET 10/325MG TAB PO PRN ×4 (02:06→21:28)
[2018-02-14 05:00] VITALS: BP 159/94
[2018-02-14] MEDS: IPRATROPIUM BROM 0.5 MG/2.5ML INH SOL NEB SCH ×5 (05:52→21:47)
[2018-02-14 06:03] LABS: INR 0.99 (0.9-1.15); Partial Thromboplastin Time 31.2 sec (22.64-33.71); Prothrombin Time 10.8 sec (9.37-12.3)
[2018-02-14] MEDS: ACCU-CHEK COMFORT CURVE STRIP VI SCH ×4 (06:20→21:28)
[2018-02-14] MEDS: hydrALAZINE HCL 25 MG TAB PO SCH ×3 (06:20→21:26)
[2018-02-14] MEDS: InsuLIN REG 1unit/0.01ml Soln (100units/ml) SC SCH ×4 (06:21→21:32)
[2018-02-14 08:00] VITALS: BP 156/88
[2018-02-14] MEDS: Boost Glucose Control 8 Ounces PO SCH ×3 (08:00→18:00)
[2018-02-14] MEDS ORDERED: MIDAZOLAM HCL 1MG/1ML-2 ML VIAL ONE (08:49)
[2018-02-14] MEDS ORDERED: fentaNYL CITRATE 100 MCG/2 ML VL ONE (08:50)
[2018-02-14 09:00] VITALS: BP 156/88
[2018-02-14] MEDS: FUROSEMIDE 40 MG TAB PO SCH (10:56)
[2018-02-14] MEDS: METOPROLOL TARTRATE 50 MG TAB PO SCH ×2 (10:57→21:26)
[2018-02-14] MEDS: AMIODARONE HCL 200 MG TAB PO SCH (10:57)
[2018-02-14] MEDS: ASPirin-EC 81 mg tab PO SCH (10:57)
[2018-02-14] MEDS: OXYCODONE W/ ACETAMINOPHEN 5/325MG TABLET PO PRN ×2 (10:58→17:26)
[2018-02-14 13:00] VITALS: BP 168/98
[2018-02-14 17:00] VITALS: BP 164/90
[2018-02-14] MEDS ORDERED: METOCLOPRAMIDE HCL 5MG/ml INJ 2ml VIAL IV PRN (18:15)
[2018-02-14] MEDS: DOCUSATE SOD 100 MG CAP PO SCH (21:26)
[2018-02-14] MEDS: ATORVASTATIN 20 MG TAB PO SCH (21:26)
[2018-02-14 22:00] VITALS: BP 144/84
[2018-02-15] MEDS: OXYCODONE W/ ACETAMINOPHEN 5/325MG TABLET PO PRN ×2 (02:54→08:57)
[2018-02-15 06:00] VITALS: BP 164/87
[2018-02-15] MEDS: hydrALAZINE HCL 25 MG TAB PO SCH ×3 (06:15→22:02)
[2018-02-15] MEDS: ACCU-CHEK COMFORT CURVE STRIP VI SCH ×4 (06:26→22:04)
[2018-02-15] MEDS: InsuLIN REG 1unit/0.01ml Soln (100units/ml) SC SCH ×4 (06:26→22:03)
[2018-02-15] MEDS: IPRATROPIUM BROM 0.5 MG/2.5ML INH SOL NEB SCH ×3 (06:55→22:30)
[2018-02-15] MEDS: Boost Glucose Control 8 Ounces PO SCH ×3 (08:00→17:41)
[2018-02-15 08:29] LABS: BUN/Creatinine Ratio 13.2; Calcium 8.8 mg/dL (8.5-10.1); Potassium 3.8 mmol/L (3.5-5.1)
[2018-02-15] MEDS: AMIODARONE HCL 200 MG TAB PO SCH (08:57)
[2018-02-15 09:00] VITALS: BP 159/90
[2018-02-15] MEDS ORDERED: cefTRIAXone 1GM/10ml IVPUSH 10 ML IV SCH (09:00)
[2018-02-15] MEDS: METOPROLOL TARTRATE 50 MG TAB PO SCH ×2 (09:01→22:02)
[2018-02-15] MEDS: FUROSEMIDE 40 MG TAB PO SCH (09:01)
[2018-02-15] MEDS: ASPirin-EC 81 mg tab PO SCH (09:01)
[2018-02-15] MEDS: DOCUSATE SOD 100 MG CAP PO SCH ×2 (09:01→22:02)
[2018-02-15] MEDS: cefTRIAXone 1GM/10ml IVPUSH 10 ML IV SCH (09:02)
[2018-02-15] MEDS: HYDROcodone-ACET 10/325MG TAB PO PRN ×2 (11:53→20:26)
[2018-02-15 13:00] VITALS: BP 165/104
[2018-02-15 17:00] VITALS: BP 172/98
[2018-02-15 20:00] VITALS: BP 150/81
[2018-02-15 22:00] VITALS: BP 176/100
[2018-02-15] MEDS: ATORVASTATIN 20 MG TAB PO SCH (22:01)
[2018-02-16] VITALS (8 sets, daily range): BP systolic 125–163; BP diastolic 69–97
[2018-02-16] MEDS: HYDROcodone-ACET 10/325MG TAB PO PRN ×5 (01:55→18:15)
[2018-02-16] MEDS: hydrALAZINE HCL 25 MG TAB PO SCH ×3 (06:11→22:10)
[2018-02-16] MEDS: InsuLIN REG 1unit/0.01ml Soln (100units/ml) SC SCH ×4 (06:12→22:25)
[2018-02-16] MEDS: IPRATROPIUM BROM 0.5 MG/2.5ML INH SOL NEB SCH ×3 (06:20→22:43)
[2018-02-16] MEDS: ACCU-CHEK COMFORT CURVE STRIP VI SCH ×4 (07:00→22:24)
[2018-02-16] MEDS: Boost Glucose Control 8 Ounces PO SCH ×3 (08:00→18:00)
[2018-02-16] MEDS: cefTRIAXone 1GM/10ml IVPUSH 10 ML IV SCH (09:00)
[2018-02-16] MEDS: DOCUSATE SOD 100 MG CAP PO SCH ×2 (10:04→22:09)
[2018-02-16] MEDS: METOPROLOL TARTRATE 50 MG TAB PO SCH ×2 (10:05→22:10)
[2018-02-16] MEDS: ASPirin-EC 81 mg tab PO SCH (10:05)
[2018-02-16] MEDS: AMIODARONE HCL 200 MG TAB PO SCH (10:05)
[2018-02-16] MEDS: FUROSEMIDE 40 MG TAB PO SCH (10:06)
[2018-02-16] MEDS ORDERED: ALBUMIN 25% 50 ML IV ONE (13:30)
[2018-02-16] MEDS: ATORVASTATIN 20 MG TAB PO SCH (22:10)
[2018-02-17] MEDS: HYDROcodone-ACET 10/325MG TAB PO PRN ×2 (00:06→10:49)
[2018-02-17 05:04] VITALS: BP 140/83
[2018-02-17] MEDS: hydrALAZINE HCL 25 MG TAB PO SCH ×2 (05:52→14:32)
[2018-02-17] MEDS: InsuLIN REG 1unit/0.01ml Soln (100units/ml) SC SCH ×3 (06:01→17:00)
[2018-02-17] MEDS: ACCU-CHEK COMFORT CURVE STRIP VI SCH ×3 (06:01→17:00)
[2018-02-17] MEDS: Boost Glucose Control 8 Ounces PO SCH ×2 (08:00→12:33)
[2018-02-17] MEDS: IPRATROPIUM BROM 0.5 MG/2.5ML INH SOL NEB SCH ×2 (08:51→14:31)
[2018-02-17 09:00] VITALS: BP 140/77
[2018-02-17] MEDS: DOCUSATE SOD 100 MG CAP PO SCH (10:34)
[2018-02-17] MEDS: cefTRIAXone 1GM/10ml IVPUSH 10 ML IV SCH (10:34)
[2018-02-17] MEDS: ASPirin-EC 81 mg tab PO SCH (10:34)
[2018-02-17] MEDS: METOPROLOL TARTRATE 50 MG TAB PO SCH (10:35)
[2018-02-17] MEDS: FUROSEMIDE 40 MG TAB PO SCH (10:35)
[2018-02-17] MEDS: AMIODARONE HCL 200 MG TAB PO SCH (10:35)
[2018-02-17 13:00] VITALS: BP 152/79
[2018-02-17 17:00] VITALS: BP 150/90
[2018-02-17] MEDS ORDERED: PRO-STAT 64 30ML PO SCH (18:00)
== END 2018-02-17 17:12 | disposition home or self-care (01) | DRG 951 ==
LOC: ER 17:32 → TELE 17:33 → TELE-WESTW 02-10 05:00
PROVIDERS: ADMIT Nurse Practitioner Family; ATTEND Internal Medicine Pulmonary Disease
PROC: 0B9J8ZZ Drainage of Left Lower Lung Lobe, Via Natural or Artificial Opening Endoscopic (ICD-10-PCS; principal; 2018-02-14)
PROC: 0W9B30Z Drainage of Left Pleural Cavity with Drainage Device, Percutaneous Approach (ICD-10-PCS; 2018-02-14)
PROC: 5A09357 Assistance with Respiratory Ventilation, Less than 24 Consecutive Hours, Continuous Positive Airway Pressure (ICD-10-PCS; 2018-02-14)
PROC: 5A09357 Assistance with Respiratory Ventilation, Less than 24 Consecutive Hours, Continuous Positive Airway Pressure (ICD-10-PCS; 2018-02-15)
PROC: 5A09357 Assistance with Respiratory Ventilation, Less than 24 Consecutive Hours, Continuous Positive Airway Pressure (ICD-10-PCS; 2018-02-17)
DX: I13.0 Hypertensive heart and chronic kidney disease with heart failure and stage 1 through stage 4 chronic kidney disease, or unspecified chronic kidney disease (principal); J90 Pleural effusion, not elsewhere classified; E44.0 Moderate protein-calorie malnutrition; E11.22 Type 2 diabetes mellitus with diabetic chronic kidney disease; F03.90 Unspecified dementia, unspecified severity, without behavioral disturbance, psychotic disturbance, mood disturbance, and anxiety; E11.65 Type 2 diabetes mellitus with hyperglycemia; I48.0 Paroxysmal atrial fibrillation; D64.9 Anemia, unspecified; I50.43 Acute on chronic combined systolic (congestive) and diastolic (congestive) heart failure; E87.1 Hypo-osmolality and hyponatremia; E78.5 Hyperlipidemia, unspecified; I25.10 Atherosclerotic heart disease of native coronary artery without angina pectoris; R07.89 Other chest pain; I25.5 Ischemic cardiomyopathy; J93.9 Pneumothorax, unspecified; N18.3 Chronic kidney disease, stage 3 (moderate); F41.9 Anxiety disorder, unspecified; K59.00 Constipation, unspecified; I69.354 Hemiplegia and hemiparesis following cerebral infarction affecting left non-dominant side; Z90.49 Acquired absence of other specified parts of digestive tract; Z95.1 Presence of aortocoronary bypass graft; Z95.2 Presence of prosthetic heart valve; Z79.84 Long term (current) use of oral hypoglycemic drugs; Z79.899 Other long term (current) drug therapy; Z79.82 Long term (current) use of aspirin; Z88.5 Allergy status to narcotic agent; Z82.3 Family history of stroke; Z82.49 Family history of ischemic heart disease and other diseases of the circulatory system; Z83.3 Family history of diabetes mellitus; Z68.31 Body mass index [BMI] 31.0-31.9, adult
CPT/HCPCS: 10022; 31622; 32557; 36415; 71045; 71046; 71250; 71275; 76604; 76705; 77012; 80048; 80053; 80061; 82962; 83036; 83735; 83880; 83986; 84484; 85025; 85379; 85610; 85730; 87070; 87081; 87205; 89051; 93005; 93306; 93970; 94640; 94660; 94667; 94668; 94761; 96374; A4223; C1729; J0171; J1815; J2250

== ENCOUNTER 2018-04-01 02:33 | Emergency (ER) | payer MEDICAID ==
[~2018-04-01] VITALS: Ht 167.6 cm; Wt 63.5 kg
[~2018-04-01 02:33] MED LIST changes: -AMIO200T33 PO; -ASPI81TA27 PO; -DOCU100T15 PO; -METO25TA62 PO
[2018-04-01] MEDS ORDERED: cloNIDine HCL 0.1 MG TAB PO ONE (03:00)
[2018-04-01 03:12] LABS: Basophils # (auto) 0 uL; Eosinophils # (auto) 0.2 uL; Hematocrit 29.8 % (36.0-46.0); Hemoglobin 9.9 g/dL (12.2-16.2); Lymphocytes # (auto) 2.3 uL; Monocytes # (auto) 0.3 uL; Monocytes % (auto) 4.3 % (0.0-12.0); Red Blood Cells 3.44 10^6/uL (4.0-5.20); Red Cell Distribution Width 16.3 % (11.8-14.3)
[2018-04-01 03:13] LABS: Basophils % (auto) 0.5 % (0.0-2.0); Eosinophils % (auto) 2.5 % (0.0-7.0); Lymphocytes % (auto) 32.9 % (10.0-50.0); Mean Corpuscular Hemoglobin 28.9 pg (28.0-32.0); Mean Corpuscular Hgb Conc. 33.4 g/dL (32.0-36.0); Mean Corpuscular Volume 86.5 fL (80.0-100.0); Neutrophils # (auto) 4.2 uL; Neutrophils % (auto) 59.8 % (37.0-80.0)
[2018-04-01 03:15] LABS: Platelet Count (auto) 495 10^3/uL (140-450)
[2018-04-01] MEDS ORDERED: HYDROcodone-ACET 10/325MG TAB PO ONE (03:15)
[2018-04-01 03:34] LABS: BUN/Creatinine Ratio 17.6; Bilirubin, Total 0.1 mg/dL (0.2-1.0); Calcium 8.7 mg/dL (8.5-10.1); Magnesium 2.2 mg/dL (1.6-2.6); Potassium 4.4 mmol/L (3.5-5.1); Total Protein 7.8 g/dL (6.4-8.2)
[2018-04-01] MEDS ORDERED: HYDROcodone-ACET 10/325MG TAB ONE (03:39)
[2018-04-01 03:58] LABS: Partial Thromboplastin Time 29.9 sec (23.78-33.04); Prothrombin Time 10.7 sec (9.27-12.13)
[2018-04-01] MEDS ORDERED: MORPHINE SULFATE 8mg/ml INJ SDV IV ONE (04:30)
[2018-04-01] MEDS ORDERED: KETOROLAC TROMETH 30 MG/ML 1ML VIAL IV ONE (04:45)
[2018-04-01] MEDS ORDERED: KETOROLAC TROMETH 30 MG/ML 1ML VIAL ONE (04:47)
[2018-04-01 05:30] VITALS: BP 126/86
== END 2018-04-01 03:57 | disposition home or self-care (01) ==
LOC: EDBD 02:33 → ER 02:41
DX: I11.0 Hypertensive heart disease with heart failure (principal); R51 Headache; I25.2 Old myocardial infarction; I50.9 Heart failure, unspecified; I25.10 Atherosclerotic heart disease of native coronary artery without angina pectoris; E78.00 Pure hypercholesterolemia, unspecified; E11.9 Type 2 diabetes mellitus without complications; E78.5 Hyperlipidemia, unspecified; Z95.1 Presence of aortocoronary bypass graft; Z95.5 Presence of coronary angioplasty implant and graft; Z86.73 Personal history of transient ischemic attack (TIA), and cerebral infarction without residual deficits; Z79.82 Long term (current) use of aspirin; Z79.84 Long term (current) use of oral hypoglycemic drugs; Z88.6 Allergy status to analgesic agent; Z90.49 Acquired absence of other specified parts of digestive tract
CPT/HCPCS: 36415; 70450; 80053; 83735; 84484; 85025; 85610; 85730; 93005; 96374; 99285; J1885; 71045

== ENCOUNTER 2018-10-14 19:25 | Emergency (ER) | payer MEDICAID ==
[~2018-10-14] VITALS: Ht 167.6 cm; Wt 72.6 kg
[2018-10-14 21:39] LABS: Basophils # (auto) 0.1 uL; Basophils % (auto) 2.1 % (0.0-2.0); Eosinophils # (auto) 0.2 uL; Eosinophils % (auto) 3.1 % (0.0-7.0); Hematocrit 32.4 % (36.0-46.0); Hemoglobin 11.3 g/dL (12.2-16.2); Lymphocytes % (auto) 30.1 % (10.0-50.0); Mean Corpuscular Hemoglobin 30.7 pg (28.0-32.0); Mean Corpuscular Hgb Conc. 34.8 g/dL (32.0-36.0); Mean Corpuscular Volume 88.3 fL (80.0-100.0); Monocytes # (auto) 0.3 uL; Monocytes % (auto) 4.3 % (0.0-12.0); Neutrophils # (auto) 3.9 uL; Neutrophils % (auto) 60.4 % (37.0-80.0); Nucleated Red Blood Cells % 0.1 %; Platelet Count (auto) 397 10^3/uL (140-450); Red Blood Cells 3.66 10^6/uL (4.0-5.20); Red Cell Distribution Width 14.7 % (11.8-14.3); White Blood Cell 6.5 10^3/uL (4.4-10.8)
[2018-10-14 21:45] LABS: INR 0.93 (0.9-1.15); Partial Thromboplastin Time 31.1 sec (23.78-33.04)
[2018-10-14] MEDS ORDERED: ACETAMINOPHEN 325 MG TAB PO ONE (21:45)
[2018-10-14 23:52] VITALS: BP 173/99
[2018-10-15] MEDS ORDERED: HYDROcodone-ACET 10/325MG TAB PO ONE
[2018-10-15 00:34] LABS: Albumin 2.8 g/dL (3.4-5.0); Calcium 8.1 mg/dL (8.5-10.1); Magnesium 2.3 mg/dL (1.6-2.6)
[2018-10-15 00:39] LABS: BUN/Creatinine Ratio 19.6; Bilirubin, Total 0.2 mg/dL (0.2-1.0); Total Protein 6.1 g/dL (6.4-8.2)
== END 2018-10-15 00:24 | disposition home or self-care (01) ==
LOC: ER 19:25
DX: H92.03 Otalgia, bilateral (principal); I11.0 Hypertensive heart disease with heart failure; I50.9 Heart failure, unspecified; E11.9 Type 2 diabetes mellitus without complications; I25.2 Old myocardial infarction; Z86.73 Personal history of transient ischemic attack (TIA), and cerebral infarction without residual deficits; Z90.49 Acquired absence of other specified parts of digestive tract; Z95.1 Presence of aortocoronary bypass graft; Z98.61 Coronary angioplasty status; Z88.6 Allergy status to analgesic agent; Z79.899 Other long term (current) drug therapy
CPT/HCPCS: 36415; 70450; 70490; 80053; 82962; 83735; 83880; 84484; 85025; 85610; 85730; 93005

== ENCOUNTER 2019-05-11 17:06 | Inpatient (IN) | payer MEDICAID ==
[~2019-05-11] VITALS: Ht 167.6 cm; Wt 73.8 kg
[2019-05-11 18:16] LABS: Basophils # (auto) 0 uL; Basophils % (auto) 0.3 % (0.0-2.0); Eosinophils # (auto) 0.2 uL; Eosinophils % (auto) 3.3 % (0.0-7.0); Hematocrit 29.1 % (36.0-46.0); Hemoglobin 9.9 g/dL (12.2-16.2); Lymphocytes # (auto) 1.3 uL; Lymphocytes % (auto) 21.1 % (10.0-50.0); Mean Corpuscular Hemoglobin 30.6 pg (28.0-32.0); Mean Corpuscular Hgb Conc. 33.9 g/dL (32.0-36.0); Mean Corpuscular Volume 90.3 fL (80.0-100.0); Monocytes # (auto) 0.3 uL; Monocytes % (auto) 4.9 % (0.0-12.0); Neutrophils # (auto) 4.5 uL; Neutrophils % (auto) 70.4 % (37.0-80.0); Platelet Count (auto) 309 10^3/uL (140-450); Red Blood Cells 3.22 10^6/uL (4.0-5.20); Red Cell Distribution Width 15.2 % (11.8-14.3); White Blood Cell 6.4 10^3/uL (4.4-10.8)
[2019-05-11 18:24] LABS: Albumin 2.9 g/dL (3.4-5.0); Magnesium 2.2 mg/dL (1.6-2.6)
[2019-05-11 18:30] LABS: BUN/Creatinine Ratio 16.9; Bilirubin, Total 0.2 mg/dL (0.2-1.0); Total Protein 6.6 g/dL (6.4-8.2)
[2019-05-11] MEDS ORDERED: ONDANSETRON HCL 4 MG/2 ML VIAL IV ONE (19:00)
[2019-05-11] MEDS ORDERED: MORPHINE SULFATE 4 MG/ML SYR/VIAL IV ONE (19:00)
[2019-05-11] MEDS ORDERED: HYDROmorphone HCL 2 MG/ML VL IV ONE (19:30)
[2019-05-11 20:09] LABS: INR 1.01 (0.9-1.15); Partial Thromboplastin Time 30.6 sec (23.64-32.05)
[2019-05-12] MEDS ORDERED: ACETAMINOPHEN 500 MG TAB PO PRN (00:30)
[2019-05-12] MEDS ORDERED: DEXTROSE (50%) 50ML SYRG IV PRN (00:30)
[2019-05-12] MEDS ORDERED: ONDANSETRON HCL 4 MG/2 ML VIAL IV PRN (00:30)
[2019-05-12] MEDS ORDERED: HYDROcodone-ACET 5/325MG TAB PO PRN (00:30)
[2019-05-12] MEDS ORDERED: DOCUSATE SOD 100 MG CAP PO PRN (00:30)
[2019-05-12] MEDS ORDERED: FUROSEMIDE 20 MG/2 ML VIAL IV ONE (01:00)
[2019-05-12] MEDS ORDERED: FUROSEMIDE 20 MG/2 ML VIAL IV SCH (06:00)
[2019-05-12] MEDS: hydrALAZINE HCL 10 MG TAB PO SCH ×5 (06:35→23:45)
[2019-05-12] MEDS: InsuLIN REG 1unit/0.01ml Soln (100units/ml) SC SCH ×4 (06:43→22:10)
[2019-05-12] MEDS: ACCU-CHEK COMFORT CURVE STRIP VI SCH ×4 (07:00→22:10)
[2019-05-12 08:48] LABS: Basophils # (auto) 0 uL; Basophils % (auto) 0.2 % (0.0-2.0); Eosinophils # (auto) 0.3 uL; Eosinophils % (auto) 4.4 % (0.0-7.0); Hematocrit 30.7 % (36.0-46.0); Hemoglobin 10.6 g/dL (12.2-16.2); Lymphocytes # (auto) 1.4 uL; Lymphocytes % (auto) 24.4 % (10.0-50.0); Mean Corpuscular Hemoglobin 30.8 pg (28.0-32.0); Mean Corpuscular Hgb Conc. 34.4 g/dL (32.0-36.0); Mean Corpuscular Volume 89.7 fL (80.0-100.0); Monocytes # (auto) 0.3 uL; Monocytes % (auto) 5.4 % (0.0-12.0); Neutrophils # (auto) 3.8 uL; Neutrophils % (auto) 65.6 % (37.0-80.0); Platelet Count (auto) 339 10^3/uL (140-450); Red Blood Cells 3.42 10^6/uL (4.0-5.20); Red Cell Distribution Width 15.4 % (11.8-14.3); White Blood Cell 5.7 10^3/uL (4.4-10.8)
[2019-05-12 09:07] LABS: Anion Gap 10 (5-15); BUN/Creatinine Ratio 14.9; Blood Urea Nitrogen 32 mg/dL (7-18); Calcium 8.6 mg/dL (8.5-10.1); Carbon Dioxide 20 mmol/L (21-32); Chloride 113 mmol/L (98-107); GFR African American 31 mL/min; GFR Non-African American 25 mL/min; Glucose 94 mg/dL (74-106); Potassium 4.1 mmol/L (3.5-5.1); Sodium 143 mmol/L (136-145)
[2019-05-12] MEDS: ENOXAPARIN SOD 30 MG/0.3 ML SYRINGE SC SCH (10:28)
[2019-05-12] MEDS: METOPROLOL TARTRATE 25 MG TAB PO SCH ×2 (10:28→21:48)
[2019-05-12] MEDS: ASPirin-EC 81 mg tab PO SCH (10:28)
[2019-05-12] MEDS: AMIODARONE HCL 200 MG TAB PO SCH (10:28)
[2019-05-12] MEDS ORDERED: LORazepam 2MG/ML-1ML VIAL IV PRN ×2 (12:00→14:30)
--- NOTE | 2019-05-12 13:40 | NUR ---
Telemetry admit from [facility] admitted to Telemetry unit after SBAR received. Patient oriented to Mariangel Barroso primary RN, unit, room, bed, and unit policies regarding patient care and visiting hours. Patient now on continuous telemetry monitoring, tele box # [id number] and telemetry reading on arrival to unit is SR 68. Patient placed on bedside oxygen, weighed by bedscale and encouraged to call if they need something. Call light within reach, All questions and concerns addressed, patient verbalized understanding. No current c/o pain, or any other discomfort, cont care
--- NOTE | 2019-05-12 13:55 | NUR ---
CARDIO AT BEDSIDE DR LEMA AT BEDSIDE, DISCUSSING POC WITH PT AND , CONT CARE
[2019-05-12 14:31] VITALS: BP 159/93
[2019-05-12] MEDS ORDERED: ISOS20TA56 PO (16:33)
[2019-05-12] MEDS ORDERED: CAR125T PO (16:33)
[2019-05-12] MEDS ORDERED: FURO40TA PO (16:34)
[2019-05-12 17:09] VITALS: BP 155/95
[2019-05-12] MEDS: FUROSEMIDE 40 MG/4 ML VIAL IV SCH (18:29)
--- NOTE | 2019-05-12 19:30 | NUR ---
Opening Shift Note Assumed care of patient, awake and alert. No S/S of distress/SOB or pain. Insructed on POC and to callfor assist PRN, will continue to monitor for changes Q1hr and PRN. Fall and safety precautions in place. Call light within reach. at bedside.
[2019-05-12 21:30] VITALS: BP 161/91
[2019-05-12] MEDS: TEMAZEPAM 15 MG CAP PO PRN (21:48)
[2019-05-12] MEDS: ATORVASTATIN 20 MG TAB PO SCH (21:48)
--- NOTE | 2019-05-12 23:37 | NUR ---
MEDICATION Patient states she no longer takes Hydralazine because her product assurance engineer DC'd it. Asked patient was blood pressure medications she takes at home, obtained list, will clarify with .
--- NOTE | 2019-05-12 23:42 | NUR ---
ANA Attempted to call MD Rehan Reyes, no answer. Voicemail left regarding patient's blood pressure and refusing hydralazine. No blood pressure PRN's on board. Asked patient if she is feeling anxious or has any pain, patient denies both. Awaiting call back, will continue to monitor
--- NOTE | 2019-05-13 00:11 | NUR ---
MD PEREZ Received call back from MD Rehan Perez. New orders received, will input and carry out.
[2019-05-13] MEDS ORDERED: hydrALAZINE HCL 20 MG/ML VL IV PRN (00:15)
[2019-05-13] MEDS ORDERED: CARVEDILOL 12.5 MG TAB PO ONE (00:15)
[2019-05-13] MEDS ORDERED: GLIP-115 PO (00:22)
[2019-05-13] MEDS ORDERED: CHOL20007 PO (00:22)
[2019-05-13] MEDS ORDERED: POTA10TA51 PO (00:22)
[2019-05-13] MEDS ORDERED: HYDR-531 PO (00:22)
[2019-05-13 04:55] VITALS: BP 150/99
[2019-05-13 05:07] LABS: Basophils # (auto) 0.1 uL; Eosinophils # (auto) 0.3 uL; Eosinophils % (auto) 4.5 % (0.0-7.0); Hematocrit 34.6 % (36.0-46.0); Hemoglobin 11.2 g/dL (12.2-16.2); Lymphocytes # (auto) 1.7 uL; Lymphocytes % (auto) 28.5 % (10.0-50.0); Mean Corpuscular Hgb Conc. 32.3 g/dL (32.0-36.0); Mean Corpuscular Volume 92.9 fL (80.0-100.0); Monocytes # (auto) 0.4 uL; Monocytes % (auto) 6.4 % (0.0-12.0); Neutrophils # (auto) 3.4 uL; Neutrophils % (auto) 58.6 % (37.0-80.0); Nucleated Red Blood Cells % 0.1 %; Platelet Count (auto) 366 10^3/uL (140-450); Red Blood Cells 3.73 10^6/uL (4.0-5.20); Red Cell Distribution Width 15.5 % (11.8-14.3); White Blood Cell 5.9 10^3/uL (4.4-10.8)
[2019-05-13] MEDS: ISOSORBIDE DINITRATE 10 MG TAB PO SCH ×3 (05:12→18:00)
[2019-05-13] MEDS: FUROSEMIDE 40 MG/4 ML VIAL IV SCH ×2 (05:12→06:00)
--- NOTE | 2019-05-13 05:15 | NUR ---
MEDICATION Patient refusing to take morning administration of Lasix, stating she hasn't taken her potassium and is beginning to feel cramps in her legs due to possible low potassium. Informed her that ballast regulator operator has drawn blood and results haven't posted yet. Patient stated that if her potassium comes back within normal limits, she will take her Lasix. If not, she will refuse. Informed her that MD should come to see her later today and will possibly order potassium. Patient verbalized understanding. Awaiting lab results.
--- NOTE | 2019-05-13 06:09 | NUR ---
LAB Called lab to ask about potassium level. Results still haven't posted yet and medication is overdue. Chemistry tech stated ETA approximately 10 minutes for results to post in EMR. Will await results
[2019-05-13 06:22] LABS: Anion Gap 11 (5-15); BUN/Creatinine Ratio 14.2; Blood Urea Nitrogen 34 mg/dL (7-18); Calcium 8.4 mg/dL (8.5-10.1); Carbon Dioxide 19 mmol/L (21-32); Chloride 109 mmol/L (98-107); GFR African American 27 mL/min; GFR Non-African American 22 mL/min; Glucose 92 mg/dL (74-106); Sodium 139 mmol/L (136-145)
[2019-05-13] MEDS: ACCU-CHEK COMFORT CURVE STRIP VI SCH ×4 (06:37→21:53)
[2019-05-13] MEDS: InsuLIN REG 1unit/0.01ml Soln (100units/ml) SC SCH ×4 (06:37→21:53)
--- NOTE | 2019-05-13 06:45 | NUR ---
REFUSE LASIX Entered room to inform patient that her potassium level result is 4 this morning and it's ok to receive her Lasix. Patient verbalized understanding, but refusing Lasix administration. Patient stated she wanted to wait until MD comes in so she could talk about medication. Assessed patient's blood pressure and documented in EMar (see EMAR). Will inform day shift RN. Will continue to monitor
--- NOTE | 2019-05-13 07:35 | NUR ---
Opening Shift Note Assumed care of patient, Patient awake and alert to name. No S/S of distress/SOB or pain reported at this time. Instructed on POC and to call for assist PRN, bed alarm activated and call light within reach, will continue to monitor for changes Q1hr and PRN.
[2019-05-13 08:00] VITALS: BP 136/93
[2019-05-13 09:00] VITALS: BP 136/93
[2019-05-13] MEDS: CARVEDILOL 12.5 MG TAB PO SCH ×2 (09:50→21:52)
[2019-05-13] MEDS: ENOXAPARIN SOD 30 MG/0.3 ML SYRINGE SC SCH (09:50)
[2019-05-13] MEDS: ASPirin-EC 81 mg tab PO SCH (09:50)
[2019-05-13] MEDS: AMIODARONE HCL 200 MG TAB PO SCH (09:51)
[2019-05-13] MEDS: amLODIPine BESYLATE 5 MG TAB PO SCH ×2 (09:54→21:52)
--- NOTE | 2019-05-13 09:57 | NUR ---
OFF UNIT PT TAKEN TO MRI. NO S/S OF SOB OR DISTRESS NOTED. NO C/O PAIN.
[2019-05-13 10:13] LABS: Urine Bacteria NONE SEEN /hpf (None Seen); Urine Blood 1+ /uL (Negative); Urine Specific Gravity 1.011 (1.001-1.035); Urine WBC 31 /hpf (0 - 5)
--- NOTE | 2019-05-13 11:06 | NUR ---
PT BACK FROM MRI BROUGHT BACK VIA WHEELCHAIR, NO DISTRESS NOTED, CONT CARE
--- NOTE | 2019-05-13 12:13 | NUR ---
PAGED DR PARISI PAGED, REGARDING PT REQUESTING TO TAKE A SHOWER, AFTER RETURNING FROM MRI PT REFUSING TO WEAR THE TELE MONITOR IN HOPE THAT SHE CAN SHOWER, NO DISTRESS NOTED AND PT INSTRUCTED TO CALL IMMEDIATELY IS ANY CP OR ANY OTHER DISCOMFORT OCCURS, OT VERBALIZED UNDERSTANDING, CALL LIGHT WITHIN REACH
--- NOTE | 2019-05-13 12:19 | NUR ---
CALL BACK DR PARISI CALLED BACK, STATES PT CAN SHOWER, REQUESTING NEURO AND CARDIO CLEARANCE AND HE WILL COME SEE PT SOON, CONT CARE
--- NOTE | 2019-05-13 12:58 | NUR ---
PAGED DR CROSS PAGE OUT TO DR CROSS RE: PATIENT MRI RESULTS AND FOR CLEARANCE TO BE DISCHARGED HOME PER DR Eze PEREZ. AWAITING RETURN PHONE CALL.
[2019-05-13 13:00] VITALS: BP 154/84
--- NOTE | 2019-05-13 13:43 | NUR ---
NEUROLOGY CLEARANCE SPOKE WITH DR AMERICA MD AWARE OF MRI RESULTS, PER MD PT CLEARED FOR DC, CONT CARE
[2019-05-13] MEDS ORDERED: LEVOFLOXACIN 500MG 100 ML IV ONE (15:30)
--- NOTE | 2019-05-13 15:35 | NUR ---
AT BEDSIDE DR PARISI AT BEDSIDE, DISCUSSING POC WITH PT AND SPOUSE, CONT CARE
--- NOTE | 2019-05-13 15:40 | NUR ---
PT OFF UNIT/NUCLEAR MEDICINE PT FOR VQ, TAKEN VIA WHEELCHAIR, NO DISTRESS NOTED AT THIS TIME, CONT CARE
[2019-05-13 16:47] VITALS: BP 137/78
--- NOTE | 2019-05-13 18:30 | NUR ---
MEDICATION HELD ISOSORBIDE 20MG NOT GIVEN, MEDICATION OUT OF STOCK IN MEDICATION PYXIS, SPOKE WITH [facility] PHARMACIST, HE STATES HE WILL SEND UP MEDICATION, CONT CARE
[2019-05-13 19:27] LABS: Protein, Urine 396.5 mg/dL (0.0-11.9)
--- NOTE | 2019-05-13 19:30 | NUR ---
Opening Shift Note Assumed care of patient, awake and alert, ambulating in halls with , walker, and steady gait. No S/S of distress/SOB or pain. Informed them that I will be in room at later time to discuss POC and to do physical assessment, patient and verbalized understanding, will continue to monitor for changes Q1hr and PRN.
--- NOTE | 2019-05-13 20:15 | NUR ---
PATIENT IN ROOM Patient and in room. Entered room to do physical assessment and discuss POC. Patient and verbalized understanding. Fall and safety precautions in place. Call light within reach.
[2019-05-13] MEDS: ATORVASTATIN 20 MG TAB PO SCH (21:52)
[2019-05-13 22:00] VITALS: BP 175/104
--- NOTE | 2019-05-13 22:30 | NUR ---
ROOM CHANGE Patient transferred to room 218B, ambulated with slight unsteady gait, own pasquale walker, and standby assist. Patient transferred with all personal belongings. No distress noted during transfer. Patient tolerated well, will continue to monitor
[2019-05-14] VITALS (7 sets, daily range): BP systolic 127–164; BP diastolic 35–90
--- NOTE | 2019-05-14 00:40 | NUR ---
BLOOD PRESSURE Rechecked blood pressure after PRN blood pressure medication administered (see emar), 164/89, HR 68. Documented blood pressure under "vitals" in interventions (see interventions). Will await approximately 30 more minutes and recheck.
--- NOTE | 2019-05-14 00:55 | NUR ---
FINGER SPLINT Patient complaining of fingers on left hand curling and unable to straighten them out. Patient requesting finger splint from physical therapy, but informed her physical therapy not here at this time. Finger splint made out of wooden tongue blade and wrapped with coban to patient's left 5th finger. Patient tolerated well, will continue to monitor
[2019-05-14] MEDS: ISOSORBIDE DINITRATE 10 MG TAB PO SCH ×3 (05:37→17:52)
[2019-05-14] MEDS: InsuLIN REG 1unit/0.01ml Soln (100units/ml) SC SCH ×4 (06:28→21:27)
[2019-05-14] MEDS: ACCU-CHEK COMFORT CURVE STRIP VI SCH ×4 (06:28→21:26)
--- NOTE | 2019-05-14 07:00 | NUR ---
CLOSING SHIFT Endorsed care to Jimmy RN. Patient resting quietly in bed, watching personal tablet, even and nonlabored breathing. No distress noted.
--- NOTE | 2019-05-14 07:30 | NUR ---
OPENING NOTE The patient is received alert and oriented times four with no SOB or s/s of distress at this time. The patient is resting in bed in the lowest position with call light within reach, will continue to monitor and POC.
[2019-05-14 09:15] LABS: Calcium 9.1 mg/dL (8.5-10.1); Potassium 4.2 mmol/L (3.5-5.1)
[2019-05-14 09:17] LABS: BUN/Creatinine Ratio 15.5
[2019-05-14] MEDS: LEVOFLOXACIN 250MG 50 ML IV SCH (09:18)
[2019-05-14] MEDS: ASPirin-EC 81 mg tab PO SCH (09:19)
[2019-05-14] MEDS: AMIODARONE HCL 200 MG TAB PO SCH (09:19)
[2019-05-14] MEDS: CARVEDILOL 12.5 MG TAB PO SCH ×2 (09:19→21:13)
[2019-05-14] MEDS: amLODIPine BESYLATE 5 MG TAB PO SCH ×2 (09:20→21:13)
[2019-05-14] MEDS: ENOXAPARIN SOD 30 MG/0.3 ML SYRINGE SC SCH (09:20)
[2019-05-14 09:36] LABS: Basophils # (auto) 0.1 uL; Basophils % (auto) 1.7 % (0.0-2.0); Eosinophils # (auto) 0.2 uL; Eosinophils % (auto) 3.5 % (0.0-7.0); Hemoglobin 10.7 g/dL (12.2-16.2); Lymphocytes # (auto) 1.1 uL; Lymphocytes % (auto) 16.7 % (10.0-50.0); Mean Corpuscular Hemoglobin 29.9 pg (28.0-32.0); Mean Corpuscular Hgb Conc. 33.5 g/dL (32.0-36.0); Mean Corpuscular Volume 89.3 fL (80.0-100.0); Monocytes # (auto) 0.4 uL; Monocytes % (auto) 6.1 % (0.0-12.0); Neutrophils # (auto) 4.7 uL; Platelet Count (auto) 387 10^3/uL (140-450); Red Blood Cells 3.58 10^6/uL (4.0-5.20); Red Cell Distribution Width 15.2 % (11.8-14.3); White Blood Cell 6.5 10^3/uL (4.4-10.8)
[2019-05-14] MEDS ORDERED: FUROSEMIDE 40 MG/4 ML VIAL IV SCH (10:00)
--- NOTE | 2019-05-14 10:20 | NUR ---
IV removal IV DC'd with sterile technique, catheter fully intact. Pressure dressing applied to site. Patient tolerated procedure well.
--- NOTE | 2019-05-14 10:40 | NUR ---
IV insertion IV access obtained, via clean sterile technique by inserting 22 gauge catheter at the right forearm after two attempt(s). IV secured properly. No trauma to site. Patient tolerated procedure well.
--- NOTE | 2019-05-14 12:30 | NUR ---
Rounds Patient awake and alert. No S/S of distress/SOB or pain. Will continue to monitor changes q1hr and PRN.
--- NOTE | 2019-05-14 15:00 | NUR ---
HOSPITALIST CALLS Dr. Eze Reyes calls and is updated on the patient's status.
[2019-05-14] MEDS ORDERED: SODIUM CHLORIDE 0.9% 250 ML IV ONE (16:00)
[2019-05-14] MEDS ORDERED: SACU1TAB PO (18:35)
--- NOTE | 2019-05-14 19:15 | NUR ---
LAB Called lab regarding 0 scheduled lab draw. Lab stated will call butt welder to come to room and draw patient.
--- NOTE | 2019-05-14 19:30 | NUR ---
Opening Shift Note Assumed care of patient, awake and alert. No S/S of distress/SOB or pain. Insructed on POC and to callfor assist PRN, will continue to monitor for changes Q1hr and PRN. at bedside. Fall and safety precautions in place. Call light within reach.
[2019-05-14 19:48] LABS: BUN/Creatinine Ratio 16.7; Calcium 8.6 mg/dL (8.5-10.1)
--- NOTE | 2019-05-14 20:15 | NUR ---
MD CUMMINS Paged Dr. Cummins regarding BMP results. Message left with answering service. Awaiting call back.
--- NOTE | 2019-05-14 20:20 | NUR ---
MD AGUILAR Received call back from Dr. Aguilar, informed him of BMP results, no new orders received. Dr. Aguilar stated will see patient tomorrow 05/15/19. Will update patient. Will continue to monitor
[2019-05-14] MEDS: ATORVASTATIN 20 MG TAB PO SCH (21:13)
[2019-05-14] MEDS: TEMAZEPAM 15 MG CAP PO PRN (21:14)
[2019-05-15 05:00] VITALS: BP 146/88
[2019-05-15] MEDS: ISOSORBIDE DINITRATE 10 MG TAB PO SCH ×2 (05:19→13:01)
[2019-05-15] MEDS: ACCU-CHEK COMFORT CURVE STRIP VI SCH ×2 (06:25→12:42)
[2019-05-15] MEDS: InsuLIN REG 1unit/0.01ml Soln (100units/ml) SC SCH ×2 (06:25→12:43)
[2019-05-15 07:25] LABS: Basophils # (auto) 0.1 uL; Basophils % (auto) 1.5 % (0.0-2.0); Eosinophils # (auto) 0.3 uL; Eosinophils % (auto) 6.2 % (0.0-7.0); Hematocrit 28.7 % (36.0-46.0); Hemoglobin 9.9 g/dL (12.2-16.2); Lymphocytes # (auto) 1.3 uL; Lymphocytes % (auto) 27.1 % (10.0-50.0); Mean Corpuscular Hemoglobin 30.7 pg (28.0-32.0); Mean Corpuscular Hgb Conc. 34.5 g/dL (32.0-36.0); Mean Corpuscular Volume 89.1 fL (80.0-100.0); Monocytes # (auto) 0.3 uL; Monocytes % (auto) 6.5 % (0.0-12.0); Neutrophils # (auto) 2.8 uL; Neutrophils % (auto) 58.7 % (37.0-80.0); Platelet Count (auto) 351 10^3/uL (140-450); Red Blood Cells 3.22 10^6/uL (4.0-5.20); Red Cell Distribution Width 14.5 % (11.8-14.3); White Blood Cell 4.8 10^3/uL (4.4-10.8)
--- NOTE | 2019-05-15 07:25 | NUR ---
Opening Shift Note Assumed care of patient, awake and alert. No S/S of distress/SOB or no pain noted or reported. Updated on POC and instructed to call for assistance as needed, pt. verbalized understanding. Bed locked in lowest position, bed rails up x2, call light within reach. Will continue to monitor for changes Q1hr and PRN.
--- NOTE | 2019-05-15 07:30 | NUR ---
CLOSING NOTE Endorsed care to Krystal AYALA. Patient resting quietly in bed, eyes closed, even and nonlabored breathing.
[2019-05-15 07:40] LABS: Anion Gap 9 (5-15); BUN/Creatinine Ratio 15.4; Blood Urea Nitrogen 37 mg/dL (7-18); Calcium 8.2 mg/dL (8.5-10.1); Carbon Dioxide 21 mmol/L (21-32); Chloride 114 mmol/L (98-107); GFR African American 27 mL/min; GFR Non-African American 22 mL/min; Glucose 97 mg/dL (74-106); Potassium 3.9 mmol/L (3.5-5.1); Sodium 144 mmol/L (136-145)
[2019-05-15 09:00] VITALS: BP 123/71
[2019-05-15] MEDS ORDERED: FUROSEMIDE 20 MG/2 ML VIAL IV SCH (10:00)
[2019-05-15] MEDS: ENOXAPARIN SOD 30 MG/0.3 ML SYRINGE SC SCH (10:27)
[2019-05-15] MEDS: LEVOFLOXACIN 250MG 50 ML IV SCH (10:27)
[2019-05-15] MEDS: AMIODARONE HCL 200 MG TAB PO SCH (10:28)
[2019-05-15] MEDS: amLODIPine BESYLATE 5 MG TAB PO SCH (10:29)
[2019-05-15] MEDS: ASPirin-EC 81 mg tab PO SCH (10:29)
[2019-05-15] MEDS: CARVEDILOL 12.5 MG TAB PO SCH (10:30)
[2019-05-15 13:18] VITALS: BP 138/81
--- NOTE | 2019-05-15 14:16 | NUR ---
NUTRITION ASSESSMENT NOTES Please refer to link notes of nutrition screen form filed under the intervention section of the plan of care for further details. Est. Needs: 1450 kcal to 1850 kcal (20-25 kcal/kgBW), 59 gms to 74 gms pro (0.8-1.0 gms/kgBW). Will continue to monitor pertinent labs and reassess nutrient need prn Thank you. Addendum: 05/15/19 at [address] Amended: Links added.
[2019-05-15] MEDS ORDERED: AML5T PO (16:11)
[2019-05-15] MEDS ORDERED: FURO20TA PO (16:11)
[2019-05-15] MEDS ORDERED: CAR125T PO (16:11)
[2019-05-15] MEDS ORDERED: AMI200T PO (16:11)
[2019-05-15] MEDS ORDERED: ASP81EC PO (16:11)
[2019-05-15] MEDS ORDERED: LEVO250T19 PO (16:11)
--- NOTE | 2019-05-15 16:35 | NUR ---
I faxed home health order to [facility]-requested authorization for [facility].
[2019-05-15 16:41] VITALS: BP 132/72
--- NOTE | 2019-05-15 16:53 | NUR ---
re-assessment consult home health safety eval faxed to [facility] ph:[phone] fx:[phone]. Neeraj Medina pt has been accepted and service to start in 24-48 hrs. Randi working on Auth. Reported to Krystal AYALA. Pt agrees to discharge plan. Addendum: 05/16/19 at 0855 by Janie Joe Amended: Links added.
--- NOTE | 2019-05-15 18:30 | NUR ---
Discharge instructions given as ordered. Encourage to follow up with PCP as instructed. All questions and concerns addressed. Patient verbalized understanding. Medication reconciliation form completed and copy given to patient. IV removed with catheter intact, pressure dressing applied. Telemetry unit returned to [facility]. Patient refused to be taken by wheelchair to vehicle. Accompanied by family member with all personal belongings. No distress noted at time of departure.
--- NOTE | 2019-05-16 09:30 | NUR ---
I called [facility] and provided them with [facility] authorization number [id number].
== END 2019-05-15 18:30 | disposition home health service (06) | DRG 190 ==
LOC: ER 17:06 → EDUNIT# 17:06 → EDBD 17:06 → TELE 17:07 → TELE-CENTR 05-12 13:32
PROVIDERS: ADMIT Nurse Practitioner Family; ATTEND Internal Medicine
DX: I21.4 Non-ST elevation (NSTEMI) myocardial infarction (principal); I26.99 Other pulmonary embolism without acute cor pulmonale; I50.43 Acute on chronic combined systolic (congestive) and diastolic (congestive) heart failure; E44.0 Moderate protein-calorie malnutrition; E11.22 Type 2 diabetes mellitus with diabetic chronic kidney disease; N18.4 Chronic kidney disease, stage 4 (severe); N17.9 Acute kidney failure, unspecified; I42.9 Cardiomyopathy, unspecified; G45.9 Transient cerebral ischemic attack, unspecified; I48.0 Paroxysmal atrial fibrillation; I13.0 Hypertensive heart and chronic kidney disease with heart failure and stage 1 through stage 4 chronic kidney disease, or unspecified chronic kidney disease; D64.9 Anemia, unspecified; E04.1 Nontoxic single thyroid nodule; E78.5 Hyperlipidemia, unspecified; F03.90 Unspecified dementia, unspecified severity, without behavioral disturbance, psychotic disturbance, mood disturbance, and anxiety; F17.200 Nicotine dependence, unspecified, uncomplicated; F41.9 Anxiety disorder, unspecified; I25.10 Atherosclerotic heart disease of native coronary artery without angina pectoris; I70.0 Atherosclerosis of aorta; M85.80 Other specified disorders of bone density and structure, unspecified site; N28.1 Cyst of kidney, acquired; N39.0 Urinary tract infection, site not specified; M77.9 Enthesopathy, unspecified; T50.2X5A Adverse effect of carbonic-anhydrase inhibitors, benzothiadiazides and other diuretics, initial encounter; I69.354 Hemiplegia and hemiparesis following cerebral infarction affecting left non-dominant side; Z79.02 Long term (current) use of antithrombotics/antiplatelets; Z79.82 Long term (current) use of aspirin; Z79.84 Long term (current) use of oral hypoglycemic drugs; Z79.899 Other long term (current) drug therapy; Z80.8 Family history of malignant neoplasm of other organs or systems; Z82.3 Family history of stroke; Z82.49 Family history of ischemic heart disease and other diseases of the circulatory system; Z83.3 Family history of diabetes mellitus; Z85.850 Personal history of malignant neoplasm of thyroid; Z95.1 Presence of aortocoronary bypass graft; Z95.5 Presence of coronary angioplasty implant and graft; Z90.49 Acquired absence of other specified parts of digestive tract
CPT/HCPCS: 36415; 70450; 70551; 71045; 72125; 72141; 73060; 73090; 73120; 73200; 76775; 78582; 80048; 80053; 81001; 82570; 82962; 83735; 83880; 84156; 84484; 85025; 85379; 85610; 85730; 93005; 93306; 93970; 93971; 96372; 96374; 96375; 96376; G0378; J1815; J1956; J2405

== ENCOUNTER 2019-07-18 15:35 | Emergency (ER) | payer MEDICAID ==
[~2019-07-18] VITALS: Ht 167.6 cm; Wt 72.6 kg
[~2019-07-18 15:35] MED LIST changes: -AMI200T PO; +AMIO200T4 PO; +AML5T PO; +ASP81EC PO; -ASPI81CH43 PO; +CAR125T PO; +CHOL20007 PO; -DOCU100C8 PO; -FENO160T8 PO; +FURO1TAB33 PO; -FURO40TA4 PO; -GLIP-115 PO; +GLIP5TAB12 PO; -HYDR-4683 PO; +HYDR-531 PO; -HYDR10TA26 PO; +ISOS20TA56 PO; +LEVO250T19 PO; -MET25T PO; -NIAC500T58; -POTA10TA51 PO; -POTA20TA53 PO; -TRAM50TA2 PO
[2019-07-18 16:07] VITALS: BP 120/64
[2019-07-18] MEDS ORDERED: KETOROLAC TROMETH 60MG/2ML VIAL IM ONE (16:45)
== END 2019-07-18 17:29 | disposition home or self-care (01) ==
LOC: ER 15:35
DX: S39.012A Strain of muscle, fascia and tendon of lower back, initial encounter (principal); I11.0 Hypertensive heart disease with heart failure; I50.9 Heart failure, unspecified; E11.9 Type 2 diabetes mellitus without complications; E78.5 Hyperlipidemia, unspecified; Z98.61 Coronary angioplasty status; Z90.49 Acquired absence of other specified parts of digestive tract; Z88.6 Allergy status to analgesic agent; Z79.899 Other long term (current) drug therapy; X50.1XXA Overexertion from prolonged static or awkward postures, initial encounter; Y93.01 Activity, walking, marching and hiking; Y92.89 Other specified places as the place of occurrence of the external cause; Y99.8 Other external cause status
CPT/HCPCS: 72100; 96372; 99283; J1885

== ENCOUNTER 2020-03-08 20:41 | Emergency (ER) | payer MEDICAID ==
[~2020-03-08] VITALS: Ht 167.6 cm; Wt 72.6 kg
[2020-03-08 22:18] LABS: Urine Bacteria FEW /hpf (None Seen); Urine Blood 1+ /uL (Negative); Urine Specific Gravity 1.013 (1.001-1.035); Urine WBC 6 /hpf (0 - 5)
[2020-03-08] MEDS ORDERED: HYDROcodone-ACET 10/325MG TAB PO ONE (23:15)
[2020-03-08 23:30] VITALS: BP 158/72
== END 2020-03-09 01:40 | disposition home or self-care (01) ==
LOC: EDBD 20:41 → ER 20:43
DX: S83.92XA Sprain of unspecified site of left knee, initial encounter (principal); S93.402A Sprain of unspecified ligament of left ankle, initial encounter; S30.1XXA Contusion of abdominal wall, initial encounter; I11.0 Hypertensive heart disease with heart failure; I50.9 Heart failure, unspecified; E11.9 Type 2 diabetes mellitus without complications; E78.5 Hyperlipidemia, unspecified; Z90.49 Acquired absence of other specified parts of digestive tract; Z86.73 Personal history of transient ischemic attack (TIA), and cerebral infarction without residual deficits; W01.0XXA Fall on same level from slipping, tripping and stumbling without subsequent striking against object, initial encounter; Y93.01 Activity, walking, marching and hiking; Y92.89 Other specified places as the place of occurrence of the external cause; Y99.8 Other external cause status
CPT/HCPCS: 73562; 73610; 74176; 81001; 82962

== ENCOUNTER 2020-10-04 23:50 | Emergency (ER) | payer MEDICAID ==
[~2020-10-04] VITALS: Ht 167.6 cm; Wt 72.6 kg
[~2020-10-04 23:50] MED LIST changes: -ASP81EC PO; +ASPI-394 PO
[2020-10-05 00:32] VITALS: BP 221/116
== END 2020-10-05 00:45 | disposition home or self-care (01) ==
LOC: ER 23:50 → EDBD 23:50 → ER 10-05 00:45
DX: I10 Essential (primary) hypertension (principal); R06.02 Shortness of breath; Z53.21 Procedure and treatment not carried out due to patient leaving prior to being seen by health care provider